=== PATIENT | female | born 1940 | race Caucasian/White ===

== ENCOUNTER 2018-05-06 06:26 | Day surgery (SDC) | payer MEDICARE, OTHER ==
[~2018-05-06 06:26] MED LIST: AMPICILLIN/SULB 3 GM/NS (PMX) 100 ML IVPB; DEXTROSE 5%-0.45% NACL 1,000 ML IV
[2018-05-06] MEDS ORDERED: BUPIVACAINE 0.25%/EPI (SDV) 30 ML INJ (06:46)
[2018-05-06] MEDS ORDERED: METOCLOPRAMIDE 10 MG INJ (07:00)
[2018-05-06] MEDS ORDERED: CEFAZOLIN 1 GM INJ (07:00)
[2018-05-06] MEDS ORDERED: DEXAMETHASONE 4 MG/ML 1 ML INJ (07:00)
[2018-05-06 07:25] LABS: INR 1.21; PROTIME 15.5 Sec (11.9-14.9); PT RATIO 1.2
[2018-05-06] MEDS ORDERED: MEPERIDINE 25 MG INJ IV (07:30)
[2018-05-06] MEDS ORDERED: DIPHENHYDRAMINE 50 MG INJ IV (07:30)
[2018-05-06] MEDS ORDERED: hydrALAzine 20 MG INJ IV (07:30)
[2018-05-06] MEDS ORDERED: FENTAnyl 50 MCG/ML VIAL IV ×2 (07:30)
[2018-05-06] MEDS ORDERED: LABETALOL HCL 20MG INJ IV (07:30)
[2018-05-06] MEDS ORDERED: ONDANSETRON 4 MG INJ IV ×2 (07:30→09:00)
[2018-05-06] MEDS ORDERED: HYDROmorphONE 1 MG/5 ML IV SYRINGE IV ×3 (07:30)
[2018-05-06] MEDS ORDERED: IPRATROPIUM (NEB) 0.5 MG/2.5 ML AMP HHN (07:30)
[2018-05-06] MEDS ORDERED: ETOMIDATE 20 MG INJ (07:53)
[2018-05-06] MEDS ORDERED: LIDOCAINE 2% (SDV) 5 ML INJ (07:53)
[2018-05-06] MEDS ORDERED: ONDANSETRON 4 MG INJ (07:53)
[2018-05-06] MEDS ORDERED: FENTAnyl 50 MCG/ML VIAL (07:53)
[2018-05-06] MEDS ORDERED: MIDAZOLAM 1 MG/ML 2 ML INJ (07:53)
[2018-05-06] MEDS ORDERED: HYDROmorphONE 2 MG/ML SYG (08:38)
[2018-05-06] MEDS ORDERED: IBUPROFEN 600 MG TAB PO (09:00)
[2018-05-06] MEDS ORDERED: HYDROCODONE/APAP (5/325) TAB PO ×2 (09:00)
[2018-05-06] MEDS: BUPIVACAINE 0.25% (MPF) 30 ML INJ (09:00)
== END 2018-05-06 13:20 | disposition home or self-care (01) ==
LOC: SDS 06:26
DX: K64.2 Third degree hemorrhoids (principal); I48.91 Unspecified atrial fibrillation; Z79.01 Long term (current) use of anticoagulants; Z95.0 Presence of cardiac pacemaker
CPT/HCPCS: 45330; 85610; 85730; 86850; 86900; 86901; 88304

== ENCOUNTER 2018-05-11 00:22 | Inpatient (IN) | payer MEDICARE, OTHER ==
[2018-05-11] MEDS: SOD CHLORIDE 0.9% 500 ML IV ×3 (00:52→21:54)
[2018-05-11] MEDS: ONDANSETRON 4 MG INJ IV ×2 (00:52→23:01)
[2018-05-11] MEDS: morphine 4 MG/ML VIAL IV (00:53)
[2018-05-11 01:26] LABS: ADD MAN DIFF? NO
[2018-05-11 01:28] LABS: BASOPHIL # 0.1 10^3/ul (0.0-0.1); BASOPHILS % 0.4 % (0.0-2.0); EOSINOPHILS # 0.4 10^3/ul (0.0-0.5); EOSINOPHILS % 2.8 % (0.0-7.0); HEMATOCRIT 35.4 % (37.0-47.0); HEMOGLOBIN 11.6 g/dl (12.0-16.0); LYMPHOCYTES # 1.7 10^3/ul (0.8-2.9); LYMPHOCYTES % 11.5 % (15.0-51.0); MEAN CORPUSCULAR HEMOGLOBIN 30.1 pg (29.0-33.0); MEAN CORPUSCULAR HGB CONC 32.8 g/dl (32.0-37.0); MEAN CORPUSCULAR VOLUME 91.9 fl (82.0-101.0); MEAN PLATELET VOLUME 11.7 fl (7.4-10.4); MONOCYTE # 1.2 10^3/ul (0.3-0.9); MONOCYTES % 8.4 % (0.0-11.0); NEUTROPHILS % 76.6 % (39.0-77.0); PLATELET COUNT 240 10^3/UL (140-415); RED BLOOD COUNT 3.85 10^6/ul (4.20-5.40); RED CELL DISTRIBUTION WIDTH 13.2 % (11.5-14.5)
[2018-05-11 01:28] LABS: WHITE BLOOD COUNT 14.4 10^3/ul (4.8-10.8)
[2018-05-11] MEDS: SOD CHLORIDE 0.9% 250 ML IV ×2 (01:34→06:12)
[2018-05-11] MEDS: LIDOCAINE 5% 35 GM OINT TOP (01:34)
[2018-05-11 01:45] LABS: ALANINE AMINOTRANSFERASE 26 IU/L (13-69); ALBUMIN 4.4 g/dl (3.3-4.9); ALBUMIN/GLOBULIN RATIO 1.15; ALKALINE PHOSPHATASE 152 IU/L (42-121); ANION GAP 19 (8-16); ASPARTATE AMINO TRANSFERASE 56 IU/L (15-46); BILIRUBIN,INDIRECT 1.9 mg/dl (0-1.1); BILIRUBIN,TOTAL 1.9 mg/dl (0.2-1.3); BLOOD UREA NITROGEN 19 mg/dl (7-20); CALCIUM 9.5 mg/dl (8.4-10.2); CARBON DIOXIDE 23 mmol/L (21-31); CHLORIDE 94 mmol/L (97-110); GLUCOSE 156 mg/dl (70-220); SODIUM 131 mmol/L (135-144); TOTAL PROTEIN 8.2 g/dl (6.1-8.1)
[2018-05-11 01:47] LABS: INR 2.22; PROTIME 25.2 Sec (11.9-14.9)
[2018-05-11 01:48] LABS: PARTIAL THROMBOPLASTIN TIME 37.8 Sec (25.0-35.0)
[2018-05-11] MEDS ORDERED: ONDANSETRON 4 MG INJ IV ×3 (02:00→08:00)
[2018-05-11] MEDS ORDERED: ACETAMINOPHEN 325 MG TAB PO (02:00)
[2018-05-11 02:14] LABS: IMMEDIATE SPIN CROSSMATCH 1
[2018-05-11 05:19] LABS: TROPONIN-I 0.014 ng/ml (0.000-0.120)
[2018-05-11 05:29] LABS: ADD MAN DIFF? NO
[2018-05-11 05:32] LABS: BASOPHILS % 0.4 % (0.0-2.0); EOSINOPHILS % 0.4 % (0.0-7.0); LYMPHOCYTES % 9.7 % (15.0-51.0); MEAN CORPUSCULAR HEMOGLOBIN 30.8 pg (29.0-33.0); MEAN CORPUSCULAR HGB CONC 33.3 g/dl (32.0-37.0); MEAN CORPUSCULAR VOLUME 92.5 fl (82.0-101.0); MEAN PLATELET VOLUME 10.4 fl (7.4-10.4); MONOCYTE # 0.5 10^3/ul (0.3-0.9); MONOCYTES % 4.8 % (0.0-11.0); NEUTROPHIL # 8.5 10^3/ul (1.6-7.5); NEUTROPHILS % 84.3 % (39.0-77.0); PLATELET COUNT 130 10^3/UL (140-415); RED BLOOD COUNT 2.92 10^6/ul (4.20-5.40); RED CELL DISTRIBUTION WIDTH 13.5 % (11.5-14.5)
[2018-05-11 05:32] LABS: WHITE BLOOD COUNT 10.1 10^3/ul (4.8-10.8)
[2018-05-11] MEDS ORDERED: NORepinephrine 8MG/250 ML (PMX 250 ML IV (07:00)
[2018-05-11] MEDS ORDERED: ALBUTEROL/IPRATROPIUM (NEB) 3 ML AMP HHN (07:00)
[2018-05-11] MEDS ORDERED: EPHEDrine SULFATE 50 MG/5 ML SYG (07:00)
[2018-05-11] MEDS ORDERED: NACL 0.9% 3 ML SYG IV (07:00)
[2018-05-11] MEDS: PHYTONADIONE 10 MG in DEXTROSE 5% 50 ML IVPB (07:30)
[2018-05-11] MEDS ORDERED: ETOMIDATE 20 MG INJ (07:31)
[2018-05-11] MEDS ORDERED: CEFAZOLIN 1 GM INJ (07:31)
[2018-05-11] MEDS ORDERED: FENTAnyl 50 MCG/ML VIAL (07:31)
[2018-05-11] MEDS ORDERED: ONDANSETRON 4 MG INJ (07:35)
[2018-05-11] MEDS ORDERED: METOCLOPRAMIDE 10 MG INJ (07:35)
[2018-05-11] MEDS ORDERED: PHENYLephrine (100 MCG/ML) 5ML SYG (07:37)
[2018-05-11] MEDS ORDERED: HYDROmorphONE 1 MG/5 ML IV SYRINGE IV ×2 (08:00)
[2018-05-11] MEDS ORDERED: EPHEDrine SULFATE 50 MG/5 ML SYG IV (08:00)
[2018-05-11 08:09] LABS: IMMEDIATE SPIN CROSSMATCH 1 6
[2018-05-11] MEDS: SOD CHLORIDE 0.9% 1,000 ML IV (08:30)
[2018-05-11] MEDS ORDERED: HYDROmorphONE 2 MG/ML SYG (08:46)
[2018-05-11] MEDS ORDERED: FAMOTIDINE 20 MG INJ IV (09:00)
[2018-05-11 09:06] LABS: ADD MAN DIFF? NO
[2018-05-11 09:08] LABS: BASOPHILS % 0.1 % (0.0-2.0); EOSINOPHILS % 0.1 % (0.0-7.0); HEMOGLOBIN 9.5 g/dl (12.0-16.0); LYMPHOCYTES # 0.9 10^3/ul (0.8-2.9); MEAN CORPUSCULAR HEMOGLOBIN 30.4 pg (29.0-33.0); MEAN CORPUSCULAR HGB CONC 32.8 g/dl (32.0-37.0); MEAN CORPUSCULAR VOLUME 92.9 fl (82.0-101.0); MEAN PLATELET VOLUME 9.9 fl (7.4-10.4); MONOCYTE # 0.5 10^3/ul (0.3-0.9); MONOCYTES % 5.7 % (0.0-11.0); NEUTROPHIL # 7.8 10^3/ul (1.6-7.5); NEUTROPHILS % 83.5 % (39.0-77.0); PLATELET COUNT 115 10^3/UL (140-415); RED BLOOD COUNT 3.12 10^6/ul (4.20-5.40); RED CELL DISTRIBUTION WIDTH 13.5 % (11.5-14.5)
[2018-05-11 09:08] LABS: WHITE BLOOD COUNT 9.3 10^3/ul (4.8-10.8)
[2018-05-11] MEDS ORDERED: DEXTROSE 50% 50 ML SYRINGE IV ×2 (09:30)
[2018-05-11] MEDS ORDERED: GLUCOSE GEL 15 GRAM TUBE PO ×2 (09:30)
[2018-05-11] MEDS ORDERED: GLUCOSE GEL 15 GRAM TUBE BUCCAL (09:30)
[2018-05-11] MEDS ORDERED: GLUCAGON 1 MG INJ IM (09:30)
[2018-05-11 09:36] LABS: PROTIME 19.4 Sec (11.9-14.9); PT RATIO 1.5
[2018-05-11 09:37] LABS: ANION GAP 14 (8-16); BLOOD UREA NITROGEN 18 mg/dl (7-20); CALCIUM 7.4 mg/dl (8.4-10.2); CARBON DIOXIDE 22 mmol/L (21-31); CHLORIDE 102 mmol/L (97-110); GLUCOSE 177 mg/dl (70-220); POTASSIUM 4.4 mmol/L (3.5-5.1); SODIUM 134 mmol/L (135-144)
[2018-05-11] MEDS: DEXTROSE 5%-0.45% NACL 1,000 ML IV ×3 (10:40→23:33)
[2018-05-11] MEDS: FAMOTIDINE 20 MG INJ IV ×2 (11:41→20:49)
[2018-05-11 12:40] LABS: MAGNESIUM 1.9 mg/dl (1.7-2.5)
[2018-05-11] MEDS: MAGNESIUM SULFATE 2 GM/50 ML 50 ML IVPB (13:12)
[2018-05-11] MEDS: INSULIN ASPART [NOVOLOG] 3 ML PEN SC ×3 (13:16→20:50)
[2018-05-11] MEDS ORDERED: INSULIN GLARGINE [LANTus] (100 UNITS/ML) SYG SC ×2 (20:00)
[2018-05-11] MEDS: INSULIN GLARGINE [LANTus] (100 UNITS/ML) SYG SC (20:48)
[2018-05-11] MEDS: DIPHENHYDRAMINE 50 MG INJ IV (20:49)
[2018-05-11] MEDS: morphine 2 MG INJ IV (23:02)
[2018-05-12] MEDS: ACCU-CHEK XX (02:00)
[2018-05-12 05:10] LABS: ADD MAN DIFF? NO
[2018-05-12 05:15] LABS: WHITE BLOOD COUNT 9.2 10^3/ul (4.8-10.8)
[2018-05-12 05:15] LABS: BASOPHILS % 0.3 % (0.0-2.0); EOSINOPHILS # 0.5 10^3/ul (0.0-0.5); EOSINOPHILS % 5.4 % (0.0-7.0); HEMATOCRIT 23.3 % (37.0-47.0); HEMOGLOBIN 7.8 g/dl (12.0-16.0); LYMPHOCYTES # 1.4 10^3/ul (0.8-2.9); LYMPHOCYTES % 14.8 % (15.0-51.0); MEAN CORPUSCULAR HEMOGLOBIN 30.8 pg (29.0-33.0); MEAN CORPUSCULAR HGB CONC 33.5 g/dl (32.0-37.0); MEAN CORPUSCULAR VOLUME 92.1 fl (82.0-101.0); MEAN PLATELET VOLUME 10.6 fl (7.4-10.4); MONOCYTE # 0.8 10^3/ul (0.3-0.9); MONOCYTES % 8.4 % (0.0-11.0); NEUTROPHIL # 6.5 10^3/ul (1.6-7.5); NEUTROPHILS % 70.4 % (39.0-77.0); PLATELET COUNT 114 10^3/UL (140-415); RED BLOOD COUNT 2.53 10^6/ul (4.20-5.40); RED CELL DISTRIBUTION WIDTH 14.4 % (11.5-14.5)
[2018-05-12 05:36] LABS: INR 1.11; IRON 60 ug/dl (35-150); PROTIME 14.5 Sec (11.9-14.9); PT RATIO 1.1
[2018-05-12 05:37] LABS: PARTIAL THROMBOPLASTIN TIME 29.7 Sec (25.0-35.0)
[2018-05-12 05:40] LABS: ALANINE AMINOTRANSFERASE 25 IU/L (13-69); ALBUMIN 2.4 g/dl (3.3-4.9); ALKALINE PHOSPHATASE 72 IU/L (42-121); ANION GAP 6 (8-16); ASPARTATE AMINO TRANSFERASE 25 IU/L (15-46); BLOOD UREA NITROGEN 13 mg/dl (7-20); CALCIUM 6.9 mg/dl (8.4-10.2); CARBON DIOXIDE 26 mmol/L (21-31); CHLORIDE 106 mmol/L (97-110); CREATININE 0.88 mg/dl (0.44-1.00); GLUCOSE 176 mg/dl (70-220); MAGNESIUM 2.7 mg/dl (1.7-2.5); POTASSIUM 4.1 mmol/L (3.5-5.1); SODIUM 134 mmol/L (135-144); TOTAL PROTEIN 4.8 g/dl (6.1-8.1)
[2018-05-12 05:46] LABS: % IRON SATURATION 21 % SAT (22-52); TOTAL IRON BINDING CAPACITY 291 ug/dl (241-421)
[2018-05-12 06:29] LABS: FERRITIN 60.7 ng/ml (11.1-264.0)
[2018-05-12] MEDS: FAMOTIDINE 20 MG INJ IV ×2 (07:48→21:22)
[2018-05-12] MEDS: INSULIN ASPART [NOVOLOG] 3 ML PEN SC ×4 (08:24→21:24)
[2018-05-12] MEDS: DEXTROSE 5%-0.45% NACL 1,000 ML IV ×3 (10:31→22:40)
[2018-05-12] MEDS: ONDANSETRON 4 MG INJ IV (11:44)
[2018-05-12] MEDS: morphine 2 MG INJ IV ×2 (11:46→22:43)
[2018-05-12] MEDS: INSULIN GLARGINE [LANTus] (100 UNITS/ML) SYG SC (20:48)
[2018-05-12] MEDS: METOPROLOL 25 MG TAB PO (21:22)
[2018-05-13] MEDS: ACCU-CHEK XX (02:02)
[2018-05-13 05:42] LABS: ADD MAN DIFF? NO
[2018-05-13 05:46] LABS: WHITE BLOOD COUNT 7.4 10^3/ul (4.8-10.8)
[2018-05-13 05:46] LABS: ABNORMAL IP MESSAGE 1; BASOPHILS % 0.3 % (0.0-2.0); EOSINOPHILS # 0.5 10^3/ul (0.0-0.5); HEMATOCRIT 26.2 % (37.0-47.0); HEMOGLOBIN 8.8 g/dl (12.0-16.0); LYMPHOCYTES # 0.9 10^3/ul (0.8-2.9); LYMPHOCYTES % 12.3 % (15.0-51.0); MEAN CORPUSCULAR HEMOGLOBIN 31.2 pg (29.0-33.0); MEAN CORPUSCULAR HGB CONC 33.6 g/dl (32.0-37.0); MEAN CORPUSCULAR VOLUME 92.9 fl (82.0-101.0); MEAN PLATELET VOLUME 10.4 fl (7.4-10.4); MONOCYTE # 0.7 10^3/ul (0.3-0.9); NEUTROPHIL # 5.2 10^3/ul (1.6-7.5); NEUTROPHILS % 69.7 % (39.0-77.0); PLATELET COUNT 95 10^3/UL (140-415); RED BLOOD COUNT 2.82 10^6/ul (4.20-5.40); RED CELL DISTRIBUTION WIDTH 14.1 % (11.5-14.5)
[2018-05-13 05:48] LABS: POSITIVE DIFF @See below
[2018-05-13 06:09] LABS: ANION GAP 5 (8-16); BLOOD UREA NITROGEN 6 mg/dl (7-20); CALCIUM 7.4 mg/dl (8.4-10.2); CARBON DIOXIDE 27 mmol/L (21-31); CHLORIDE 106 mmol/L (97-110); CREATININE 0.72 mg/dl (0.44-1.00); GLUCOSE 144 mg/dl (70-220); POTASSIUM 3.9 mmol/L (3.5-5.1); SODIUM 134 mmol/L (135-144)
[2018-05-13 06:10] LABS: INR 1.15; PROTIME 14.9 Sec (11.9-14.9); PT RATIO 1.2
[2018-05-13] MEDS: DILTIAZEM 25 MG INJ IV (06:13)
[2018-05-13] MEDS: INSULIN ASPART [NOVOLOG] 3 ML PEN SC ×4 (07:50→21:00)
[2018-05-13] MEDS: FAMOTIDINE 20 MG INJ IV ×2 (09:23→21:00)
[2018-05-13] MEDS: DEXTROSE 5%-0.45% NACL 1,000 ML IV (09:23)
[2018-05-13] MEDS: METOPROLOL 25 MG TAB PO ×2 (09:23→15:22)
[2018-05-13] MEDS: morphine 2 MG INJ IV (12:19)
[2018-05-13] MEDS: ONDANSETRON 4 MG INJ IV (12:19)
[2018-05-13] MEDS: METOPROLOL 5 MG INJ IV (15:22)
[2018-05-13] MEDS: DIGOXIN 500 MCG INJ IV (18:26)
[2018-05-13] MEDS: DIPHENHYDRAMINE 50 MG INJ IV (18:33)
[2018-05-13] MEDS: ACETAMINOPHEN 325 MG TAB PO (18:39)
[2018-05-13 18:57] LABS: TROPONIN-I 0.027 ng/ml (0.000-0.120)
[2018-05-13 19:17] LABS: THYROID STIMULATING HORMONE 0.501 MIU/L (0.465-4.680)
[2018-05-13] MEDS: DOCUSATE SODIUM 100 MG CAP PO (21:00)
[2018-05-13] MEDS: METOPROLOL 50 MG TAB PO (21:16)
[2018-05-13] MEDS: INSULIN GLARGINE [LANTus] (100 UNITS/ML) SYG SC (21:27)
[2018-05-14] MEDS: DIGOXIN 500 MCG INJ IV (00:16)
[2018-05-14 01:24] LABS: TROPONIN-I 0.035 ng/ml (0.000-0.120)
[2018-05-14] MEDS: ACCU-CHEK XX (02:00)
[2018-05-14] MEDS: DILTIAZEM 25 MG INJ IV (03:50)
[2018-05-14 06:24] LABS: TROPONIN-I 0.031 ng/ml (0.000-0.120)
[2018-05-14] MEDS: INSULIN ASPART [NOVOLOG] 3 ML PEN SC ×4 (07:36→21:00)
[2018-05-14] MEDS: FAMOTIDINE 20 MG INJ IV ×2 (09:15→21:30)
[2018-05-14] MEDS: DOCUSATE SODIUM 100 MG CAP PO ×3 (09:15→21:00)
[2018-05-14] MEDS: METOPROLOL 50 MG TAB PO ×2 (09:15→21:32)
[2018-05-14] MEDS: DIPHENHYDRAMINE 50 MG INJ IV ×2 (09:16→23:44)
[2018-05-14] MEDS: ACETAMINOPHEN 325 MG TAB PO (09:16)
[2018-05-14] MEDS: DILTIAZEM 60 MG TAB PO ×2 (12:05→21:31)
[2018-05-14] MEDS: INSULIN GLARGINE [LANTus] (100 UNITS/ML) SYG SC (21:54)
[2018-05-14] MEDS: ONDANSETRON 4 MG INJ IV (23:37)
[2018-05-15] MEDS: ACCU-CHEK XX (02:00)
[2018-05-15] MEDS: INSULIN ASPART [NOVOLOG] 3 ML PEN SC ×4 (08:00→21:00)
[2018-05-15] MEDS: DOCUSATE SODIUM 100 MG CAP PO ×3 (09:00→21:30)
[2018-05-15] MEDS: DILTIAZEM 60 MG TAB PO ×3 (09:04→21:39)
[2018-05-15] MEDS: METOPROLOL 50 MG TAB PO ×2 (09:05→21:39)
[2018-05-15] MEDS: FAMOTIDINE 20 MG INJ IV ×2 (09:05→21:00)
[2018-05-15] MEDS: ACETAMINOPHEN 325 MG TAB PO (13:35)
[2018-05-15] MEDS ORDERED: DIGOXIN 500 MCG INJ IV (14:30)
[2018-05-15] MEDS ORDERED: HYDROCODONE/APAP (5/325) TAB PO (16:30)
[2018-05-15] MEDS: DIGOXIN 0.25 MG TAB PO (18:41)
[2018-05-15] MEDS: INSULIN GLARGINE [LANTus] (100 UNITS/ML) SYG SC (22:06)
[2018-05-16] MEDS: ACETAMINOPHEN 325 MG TAB PO ×2 (00:29→17:38)
[2018-05-16] MEDS: INSULIN ASPART [NOVOLOG] 3 ML PEN SC ×4 (08:00→20:01)
[2018-05-16] MEDS: DOCUSATE SODIUM 100 MG CAP PO ×3 (08:22→20:01)
[2018-05-16] MEDS: FAMOTIDINE 20 MG INJ IV ×2 (08:22→20:00)
[2018-05-16] MEDS: DILTIAZEM 60 MG TAB PO ×3 (08:23→20:01)
[2018-05-16] MEDS: METOPROLOL 50 MG TAB PO ×2 (08:23→16:51)
[2018-05-16] MEDS: ENOXAPARIN 40 MG/0.4 ML SYG SC ×2 (08:32→20:06)
[2018-05-16] MEDS ORDERED: ENOXAPARIN 40 MG/0.4 ML SYG SC (09:00)
[2018-05-16] MEDS: DIGOXIN 0.25 MG TAB PO (12:29)
[2018-05-16] MEDS: FUROSEMIDE 40 MG INJ IV (12:30)
[2018-05-16] MEDS: WARFARIN 3 MG TAB PO (16:51)
[2018-05-16] MEDS: ONDANSETRON 4 MG INJ IV (17:44)
[2018-05-16] MEDS: INSULIN GLARGINE [LANTus] (100 UNITS/ML) SYG SC (20:06)
[2018-05-17] MEDS: METOPROLOL 50 MG TAB PO ×4 (01:09→21:33)
[2018-05-17] MEDS: DIPHENHYDRAMINE 50 MG INJ IV (03:50)
[2018-05-17] MEDS: ACETAMINOPHEN 325 MG TAB PO (03:50)
[2018-05-17 06:15] LABS: ADD MAN DIFF? NO
[2018-05-17 06:17] LABS: WHITE BLOOD COUNT 8.7 10^3/ul (4.8-10.8)
[2018-05-17 06:17] LABS: BASOPHILS % 0.2 % (0.0-2.0); EOSINOPHILS # 0.4 10^3/ul (0.0-0.5); EOSINOPHILS % 5.1 % (0.0-7.0); HEMATOCRIT 27.7 % (37.0-47.0); HEMOGLOBIN 9.2 g/dl (12.0-16.0); LYMPHOCYTES # 0.7 10^3/ul (0.8-2.9); LYMPHOCYTES % 8.2 % (15.0-51.0); MEAN CORPUSCULAR HEMOGLOBIN 31.4 pg (29.0-33.0); MEAN CORPUSCULAR HGB CONC 33.2 g/dl (32.0-37.0); MEAN CORPUSCULAR VOLUME 94.5 fl (82.0-101.0); MEAN PLATELET VOLUME 9.8 fl (7.4-10.4); MONOCYTE # 0.6 10^3/ul (0.3-0.9); MONOCYTES % 7.1 % (0.0-11.0); NEUTROPHIL # 6.8 10^3/ul (1.6-7.5); NEUTROPHILS % 78.4 % (39.0-77.0); PLATELET COUNT 187 10^3/UL (140-415); RED BLOOD COUNT 2.93 10^6/ul (4.20-5.40); RED CELL DISTRIBUTION WIDTH 15.3 % (11.5-14.5)
[2018-05-17 06:40] LABS: INR 1.15; PROTIME 14.9 Sec (11.9-14.9); PT RATIO 1.2
[2018-05-17 06:41] LABS: ALANINE AMINOTRANSFERASE 26 IU/L (13-69); ALBUMIN 2.9 g/dl (3.3-4.9); ALBUMIN/GLOBULIN RATIO 1.11; ALKALINE PHOSPHATASE 110 IU/L (42-121); ANION GAP 11 (8-16); ASPARTATE AMINO TRANSFERASE 26 IU/L (15-46); BLOOD UREA NITROGEN 11 mg/dl (7-20); CALCIUM 7.5 mg/dl (8.4-10.2); CARBON DIOXIDE 25 mmol/L (21-31); CHLORIDE 104 mmol/L (97-110); CREATININE 0.59 mg/dl (0.44-1.00); GLUCOSE 82 mg/dl (70-220); POTASSIUM 3.2 mmol/L (3.5-5.1); SODIUM 137 mmol/L (135-144); TOTAL PROTEIN 5.5 g/dl (6.1-8.1)
[2018-05-17] MEDS: INSULIN ASPART [NOVOLOG] 3 ML PEN SC ×4 (07:54→21:00)
[2018-05-17] MEDS: FAMOTIDINE 20 MG INJ IV (08:25)
[2018-05-17] MEDS: DILTIAZEM 60 MG TAB PO ×3 (08:26→21:34)
[2018-05-17] MEDS: POTASSIUM CHLORIDE (SR) 20 MEQ TAB PO (08:26)
[2018-05-17] MEDS: FUROSEMIDE 40 MG INJ IV (08:27)
[2018-05-17] MEDS: DOCUSATE SODIUM 100 MG CAP PO ×4 (08:27→21:34)
[2018-05-17] MEDS: ENOXAPARIN 40 MG/0.4 ML SYG SC ×2 (08:47→21:39)
[2018-05-17] MEDS: DIGOXIN 500 MCG INJ IV (12:08)
[2018-05-17] MEDS ORDERED: DIGOXIN 0.25 MG TAB PO (13:00)
[2018-05-17] MEDS: WARFARIN 3 MG TAB PO (17:28)
[2018-05-17] MEDS: INSULIN GLARGINE [LANTus] (100 UNITS/ML) SYG SC (21:39)
[2018-05-18] MEDS: METOPROLOL 50 MG TAB PO ×2 (05:33→14:21)
[2018-05-18] MEDS: INSULIN ASPART [NOVOLOG] 3 ML PEN SC ×2 (08:00→12:00)
[2018-05-18] MEDS: DILTIAZEM 60 MG TAB PO ×2 (08:27→12:32)
[2018-05-18] MEDS: FUROSEMIDE 40 MG TAB PO (08:27)
[2018-05-18] MEDS: ENOXAPARIN 40 MG/0.4 ML SYG SC (08:29)
[2018-05-18] MEDS: DOCUSATE SODIUM 100 MG CAP PO ×2 (08:30→12:32)
[2018-05-18] MEDS: DIGOXIN 0.125 MG TAB PO (12:32)
[2018-05-18] MEDS: POTASSIUM CHLORIDE 100 ML IVPB (14:46)
== END 2018-05-18 14:35 | disposition home or self-care (01) | DRG 981 ==
LOC: E/R 00:22 → ICU 05-12 20:02 → 6WM 05-12 21:37
PROC: 0W3P7ZZ Control Bleeding in Gastrointestinal Tract, Via Natural or Artificial Opening (ICD-10-PCS; principal; 2018-05-11 07:16)
PROC: 30233K1 Transfusion of Nonautologous Frozen Plasma into Peripheral Vein, Percutaneous Approach (ICD-10-PCS; 2018-05-11 07:31)
PROC: 30233N1 Transfusion of Nonautologous Red Blood Cells into Peripheral Vein, Percutaneous Approach (ICD-10-PCS; 2018-05-11 07:31)
DX: D68.32 Hemorrhagic disorder due to extrinsic circulating anticoagulants (principal); R57.1 Hypovolemic shock; D62 Acute posthemorrhagic anemia; K62.5 Hemorrhage of anus and rectum; N17.9 Acute kidney failure, unspecified; E87.1 Hypo-osmolality and hyponatremia; K91.840 Postprocedural hemorrhage of a digestive system organ or structure following a digestive system procedure; E87.0 Hyperosmolality and hypernatremia; I48.91 Unspecified atrial fibrillation; Z95.0 Presence of cardiac pacemaker; Z79.02 Long term (current) use of antithrombotics/antiplatelets; Z95.2 Presence of prosthetic heart valve; I12.9 Hypertensive chronic kidney disease with stage 1 through stage 4 chronic kidney disease, or unspecified chronic kidney disease; N18.9 Chronic kidney disease, unspecified; E11.9 Type 2 diabetes mellitus without complications; T45.515A Adverse effect of anticoagulants, initial encounter
CPT/HCPCS: 36415; 36430; 71045; 80048; 80053; 82728; 82962; 83036; 83540; 83735; 84443; 84484; 85025; 85610; 85730; 86644; 86850; 86900; 86901; 86920; 87081; 93005; 93306; 96374; 96375; 97110; 97116; 97161; 97530; 99291-25

== ENCOUNTER 2018-05-23 21:21 | Inpatient (IN) | payer MEDICARE, OTHER ==
[2018-05-23 23:22] LABS: ADD MAN DIFF? NO
[2018-05-23 23:27] LABS: WHITE BLOOD COUNT 7.8 10^3/ul (4.8-10.8)
[2018-05-23 23:27] LABS: BASOPHILS % 0.5 % (0.0-2.0); EOSINOPHILS # 0.1 10^3/ul (0.0-0.5); EOSINOPHILS % 0.6 % (0.0-7.0); HEMATOCRIT 27.1 % (37.0-47.0); HEMOGLOBIN 8.8 g/dl (12.0-16.0); LYMPHOCYTES # 1.1 10^3/ul (0.8-2.9); LYMPHOCYTES % 14.5 % (15.0-51.0); MEAN CORPUSCULAR HEMOGLOBIN 31.1 pg (29.0-33.0); MEAN CORPUSCULAR HGB CONC 32.5 g/dl (32.0-37.0); MEAN CORPUSCULAR VOLUME 95.8 fl (82.0-101.0); MEAN PLATELET VOLUME 10.7 fl (7.4-10.4); MONOCYTES % 12.2 % (0.0-11.0); NEUTROPHIL # 5.5 10^3/ul (1.6-7.5); NEUTROPHILS % 71.4 % (39.0-77.0); PLATELET COUNT 245 10^3/UL (140-415); RED BLOOD COUNT 2.83 10^6/ul (4.20-5.40)
[2018-05-23 23:31] LABS: PT RATIO 3.5
[2018-05-23 23:32] LABS: PARTIAL THROMBOPLASTIN TIME 43.8 Sec (23.0-35.0)
[2018-05-23 23:38] LABS: ALANINE AMINOTRANSFERASE 29 IU/L (13-69); ALBUMIN 3.3 g/dl (3.3-4.9); ALBUMIN/GLOBULIN RATIO 0.97; ALKALINE PHOSPHATASE 141 IU/L (42-121); ANION GAP 14 (8-16); ASPARTATE AMINO TRANSFERASE 86 IU/L (15-46); BLOOD UREA NITROGEN 16 mg/dl (7-20); CARBON DIOXIDE 25 mmol/L (21-31); CHLORIDE 98 mmol/L (97-110); CREATININE 1.01 mg/dl (0.44-1.00); GLUCOSE 119 mg/dl (70-220); LIPASE 1493 U/L (23-300); POTASSIUM 4.1 mmol/L (3.5-5.1); SODIUM 133 mmol/L (135-144); TOTAL PROTEIN 6.7 g/dl (6.1-8.1)
[2018-05-23 23:41] LABS: PROTIME 44.3 Sec (11.9-14.9)
[2018-05-23 23:55] LABS: URINE BLOOD (Dip) POC 3+ (NEGATIVE); URINE GLUCOSE (Dip) POC Negative (NEGATIVE); URINE KETONES (Dip) POC 1+ (NEGATIVE); URINE LEUKOCYTE EST (Dip) POC 3+ (NEGATIVE); URINE NITRITE (Dip) POC Negative (NEGATIVE); URINE TOTAL PROTEIN POC 3+ (NEGATIVE)
[2018-05-23 23:55] LABS: URINE PH (Dip) POC 8.5 (5.0-8.5)
[2018-05-24] MEDS: SOD CHLORIDE 0.9% 500 ML IV ×2 (00:01→02:20)
[2018-05-24] MEDS: PIPER-TAZO 3.375 GM IV (PMX) 100 ML IVPB (00:18)
[2018-05-24] MEDS: morphine 2 MG INJ IV ×2 (00:40→08:21)
[2018-05-24] MEDS: ONDANSETRON 4 MG INJ IV ×2 (00:40→08:21)
[2018-05-24] MEDS: DEXTROSE 5%-0.45% NACL 1,000 ML IV (03:56)
[2018-05-24] MEDS ORDERED: GLUCOSE GEL 15 GRAM TUBE PO ×2 (04:30)
[2018-05-24] MEDS ORDERED: GLUCOSE GEL 15 GRAM TUBE BUCCAL (04:30)
[2018-05-24] MEDS ORDERED: GLUCAGON 1 MG INJ IM (04:30)
[2018-05-24] MEDS ORDERED: DEXTROSE 50% 50 ML SYRINGE IV ×2 (04:30)
[2018-05-24] MEDS: INSULIN ASPART [NOVOLOG] 3 ML PEN SC ×5 (05:00→20:49)
[2018-05-24] MEDS ORDERED: INSULIN ASPART [NOVOLOG] 3 ML PEN SC ×2 (05:00→07:55)
[2018-05-24] MEDS: ACCU-CHEK XX ×5 (05:39→20:49)
[2018-05-24 07:02] LABS: ADD MAN DIFF? NO
[2018-05-24 07:16] LABS: BASOPHILS % 0.4 % (0.0-2.0); EOSINOPHILS # 0.1 10^3/ul (0.0-0.5); EOSINOPHILS % 0.6 % (0.0-7.0); HEMATOCRIT 25.4 % (37.0-47.0); HEMOGLOBIN 8.1 g/dl (12.0-16.0); LYMPHOCYTES # 1.3 10^3/ul (0.8-2.9); LYMPHOCYTES % 15.1 % (15.0-51.0); MEAN CORPUSCULAR HEMOGLOBIN 31.4 pg (29.0-33.0); MEAN CORPUSCULAR HGB CONC 31.9 g/dl (32.0-37.0); MEAN CORPUSCULAR VOLUME 98.4 fl (82.0-101.0); MEAN PLATELET VOLUME 10.2 fl (7.4-10.4); MONOCYTE # 0.9 10^3/ul (0.3-0.9); MONOCYTES % 10.8 % (0.0-11.0); NEUTROPHIL # 6.1 10^3/ul (1.6-7.5); NEUTROPHILS % 71.9 % (39.0-77.0); NUCLEATED RED BLOOD CELLS% 0.2 /100WBC (0.0-0.0); PLATELET COUNT 222 10^3/UL (140-415); RED BLOOD COUNT 2.58 10^6/ul (4.20-5.40); RED CELL DISTRIBUTION WIDTH 16.3 % (11.5-14.5)
[2018-05-24 07:16] LABS: WHITE BLOOD COUNT 8.4 10^3/ul (4.8-10.8)
[2018-05-24 07:56] LABS: ALANINE AMINOTRANSFERASE 26 IU/L (13-69); ALBUMIN 3.1 g/dl (3.3-4.9); ALBUMIN/GLOBULIN RATIO 1.06; ALKALINE PHOSPHATASE 115 IU/L (42-121); ANION GAP 8 (8-16); ASPARTATE AMINO TRANSFERASE 80 IU/L (15-46); BILIRUBIN,INDIRECT 2.6 mg/dl (0-1.1); BILIRUBIN,TOTAL 3.5 mg/dl (0.2-1.3); BLOOD UREA NITROGEN 15 mg/dl (7-20); CALCIUM 7.8 mg/dl (8.4-10.2); CARBON DIOXIDE 28 mmol/L (21-31); CHLORIDE 105 mmol/L (97-110); CREATININE 0.99 mg/dl (0.44-1.00); GLUCOSE 125 mg/dl (70-220); POTASSIUM 4.2 mmol/L (3.5-5.1); SODIUM 137 mmol/L (135-144)
[2018-05-24 08:29] LABS: CHOLESTEROL 84 mg/dl (100-200)
[2018-05-24 08:29] LABS: CHOL/HDL RATIO 2.3 RATIO; HDL CHOLESTEROL 36 mg/dl (33-92); LDL CHOLESTEROL,CALCULATED 32 mg/dl; TRIGLYCERIDES 80 mg/dl (0-149)
[2018-05-24] MEDS ORDERED: DILTIAZEM 25 MG INJ IV (15:00)
[2018-05-24] MEDS: METOPROLOL 5 MG INJ IV ×2 (15:53→17:47)
[2018-05-24] MEDS: SOD CHLORIDE 0.9% 1,000 ML IV ×2 (15:53→20:49)
[2018-05-24] MEDS: LEVOFLOXACIN 250MG/D5W (PMX) 50 ML IVPB (15:53)
[2018-05-24] MEDS: MAGNESIUM HYDROXIDE 30ML CUP PO (15:53)
[2018-05-24] MEDS: DOCUSATE SODIUM 100 MG CAP PO ×2 (15:53→20:48)
[2018-05-24] MEDS: LEVOFLOXACIN 500MG/D5W (PMX) 100 ML IVPB (15:58)
[2018-05-24 19:07] LABS: ADD UMIC YES; UR ASCORBIC ACID NEGATIVE (NEGATIVE); UR BILIRUBIN (Dip) NEGATIVE (NEGATIVE); UR BLOOD (Dip) 3+ mg/dL (NEGATIVE); UR CLARITY SLIGHTLY CLOUDY (CLEAR); UR COLOR AMBER (YELLOW); UR GLUCOSE (Dip) NEGATIVE (NEGATIVE); UR KETONES (Dip) NEGATIVE (NEGATIVE); UR LEUKOCYTE ESTERASE (Dip) 3+ Leu/ul (NEGATIVE); UR NITRITE (Dip) NEGATIVE (NEGATIVE); UR RBC 8 /HPF (0-5); UR SPECIFIC GRAVITY (Dip) 1.015 (1.003-1.030); UR SQUAMOUS EPITHELIAL CELL FEW /HPF (FEW); UR TOTAL PROTEIN (Dip) 1+ mg/dl (NEGATIVE); UR UROBILINOGEN (Dip) 2+ mg/dL (NEGATIVE); UR WBC 99 /HPF (0-5)
[2018-05-24] MEDS: HARD FAT/PHENYLEPHRINE SUPP PR ×2 (20:48→20:59)
[2018-05-25] MEDS: METOPROLOL 5 MG INJ IV ×2 (00:08→05:08)
[2018-05-25] MEDS: morphine 2 MG INJ IV ×2 (00:18→18:32)
[2018-05-25] MEDS: ONDANSETRON 4 MG INJ IV ×2 (00:21→13:33)
[2018-05-25] MEDS: INSULIN ASPART [NOVOLOG] 3 ML PEN SC ×6 (01:00→20:52)
[2018-05-25] MEDS: ACCU-CHEK XX ×6 (01:00→21:00)
[2018-05-25] MEDS ORDERED: ACCU-CHEK XX (02:00)
[2018-05-25] MEDS: SOD CHLORIDE 0.9% 1,000 ML IV ×2 (03:30→07:00)
[2018-05-25] MEDS: HARD FAT/PHENYLEPHRINE SUPP PR ×2 (08:08→20:56)
[2018-05-25] MEDS: DOCUSATE SODIUM 100 MG CAP PO ×3 (08:08→20:56)
[2018-05-25 08:12] LABS: ADD MAN DIFF? NO
[2018-05-25 08:26] LABS: WHITE BLOOD COUNT 5.4 10^3/ul (4.8-10.8)
[2018-05-25 08:26] LABS: BASOPHILS % 0.7 % (0.0-2.0); EOSINOPHILS # 0.2 10^3/ul (0.0-0.5); EOSINOPHILS % 3.3 % (0.0-7.0); HEMOGLOBIN 7.7 g/dl (12.0-16.0); LYMPHOCYTES # 1.3 10^3/ul (0.8-2.9); LYMPHOCYTES % 23.8 % (15.0-51.0); MEAN CORPUSCULAR HGB CONC 30.8 g/dl (32.0-37.0); MEAN CORPUSCULAR VOLUME 100.8 fl (82.0-101.0); MEAN PLATELET VOLUME 9.7 fl (7.4-10.4); MONOCYTE # 0.6 10^3/ul (0.3-0.9); MONOCYTES % 10.1 % (0.0-11.0); NEUTROPHIL # 3.3 10^3/ul (1.6-7.5); PLATELET COUNT 193 10^3/UL (140-415); RED BLOOD COUNT 2.48 10^6/ul (4.20-5.40); RED CELL DISTRIBUTION WIDTH 17.2 % (11.5-14.5)
[2018-05-25 08:32] LABS: ALANINE AMINOTRANSFERASE 39 IU/L (13-69); ALBUMIN 2.6 g/dl (3.3-4.9); ALBUMIN/GLOBULIN RATIO 0.86; ALKALINE PHOSPHATASE 116 IU/L (42-121); ANION GAP 9 (8-16); ASPARTATE AMINO TRANSFERASE 56 IU/L (15-46); BILIRUBIN,INDIRECT 0.6 mg/dl (0-1.1); BILIRUBIN,TOTAL 0.6 mg/dl (0.2-1.3); BLOOD UREA NITROGEN 12 mg/dl (7-20); CALCIUM 7.6 mg/dl (8.4-10.2); CARBON DIOXIDE 27 mmol/L (21-31); CHLORIDE 107 mmol/L (97-110); CREATININE 0.82 mg/dl (0.44-1.00); GLUCOSE 92 mg/dl (70-220); POTASSIUM 4.4 mmol/L (3.5-5.1); SODIUM 139 mmol/L (135-144); TOTAL PROTEIN 5.6 g/dl (6.1-8.1)
[2018-05-25 08:40] LABS: INR 4.69; PROTIME 45.8 Sec (11.9-14.9); PT RATIO 3.6
[2018-05-25 09:52] LABS: MAGNESIUM 2.4 mg/dl (1.7-2.5)
[2018-05-25] MEDS: DILTIAZEM (CD) 120 MG CAP PO (12:15)
[2018-05-25] MEDS: ATENOLOL 100 MG TAB PO (13:25)
[2018-05-25] MEDS: DEXTROSE 5%-0.45% NACL 1,000 ML IV (14:26)
[2018-05-25] MEDS ORDERED: ATORVASTATIN 40 MG TAB PO (21:00)
[2018-05-26] MEDS: INSULIN ASPART [NOVOLOG] 3 ML PEN SC ×6 (01:00→20:09)
[2018-05-26] MEDS: ACCU-CHEK XX ×6 (01:00→20:10)
[2018-05-26] MEDS: DEXTROSE 5%-0.45% NACL 1,000 ML IV ×2 (02:46→19:44)
[2018-05-26] MEDS: morphine 2 MG INJ IV ×2 (05:34→19:42)
[2018-05-26] MEDS: ONDANSETRON 4 MG INJ IV ×2 (05:34→19:41)
[2018-05-26 06:54] LABS: ADD MAN DIFF? NO
[2018-05-26 06:57] LABS: WHITE BLOOD COUNT 5.7 10^3/ul (4.8-10.8)
[2018-05-26 06:57] LABS: BASOPHILS % 0.7 % (0.0-2.0); EOSINOPHILS # 0.4 10^3/ul (0.0-0.5); EOSINOPHILS % 6.4 % (0.0-7.0); HEMOGLOBIN 7.6 g/dl (12.0-16.0); LYMPHOCYTES # 1.1 10^3/ul (0.8-2.9); LYMPHOCYTES % 18.3 % (15.0-51.0); MEAN CORPUSCULAR HEMOGLOBIN 30.9 pg (29.0-33.0); MEAN CORPUSCULAR HGB CONC 30.4 g/dl (32.0-37.0); MEAN CORPUSCULAR VOLUME 101.6 fl (82.0-101.0); MEAN PLATELET VOLUME 9.9 fl (7.4-10.4); MONOCYTE # 0.5 10^3/ul (0.3-0.9); MONOCYTES % 8.2 % (0.0-11.0); NEUTROPHIL # 3.8 10^3/ul (1.6-7.5); NEUTROPHILS % 65.7 % (39.0-77.0); PLATELET COUNT 200 10^3/UL (140-415); RED BLOOD COUNT 2.46 10^6/ul (4.20-5.40); RED CELL DISTRIBUTION WIDTH 17.3 % (11.5-14.5)
[2018-05-26 07:19] LABS: INR 3.97; PROTIME 40.1 Sec (11.9-14.9); PT RATIO 3.1
[2018-05-26 07:19] LABS: LIPASE 216 U/L (23-300)
[2018-05-26 07:28] LABS: ANION GAP 9 (8-16); BLOOD UREA NITROGEN 8 mg/dl (7-20); CALCIUM 7.4 mg/dl (8.4-10.2); CARBON DIOXIDE 26 mmol/L (21-31); CHLORIDE 105 mmol/L (97-110); CREATININE 0.76 mg/dl (0.44-1.00); GLUCOSE 142 mg/dl (70-220); MAGNESIUM 2.7 mg/dl (1.7-2.5); PHOSPHORUS 1.5 mg/dl (2.5-4.9); POTASSIUM 3.8 mmol/L (3.5-5.1); SODIUM 136 mmol/L (135-144)
[2018-05-26] MEDS: DOCUSATE SODIUM 100 MG CAP PO ×3 (07:47→20:10)
[2018-05-26] MEDS: HARD FAT/PHENYLEPHRINE SUPP PR ×2 (07:47→20:09)
[2018-05-26] MEDS: ATENOLOL 100 MG TAB PO ×2 (07:48→13:04)
[2018-05-26] MEDS: DILTIAZEM (CD) 120 MG CAP PO ×2 (07:48→13:04)
[2018-05-26] MEDS: SPIRONOLACTONE 50 MG TAB PO (08:01)
[2018-05-26] MEDS: FUROSEMIDE 20 MG TAB PO (08:02)
[2018-05-26] MEDS: SODIUM PHOSPHATE 15 MMOL in SOD CHLORIDE 0.9% 250 ML IVPB (13:03)
[2018-05-26] MEDS: SUCRALFATE (100 MG/ML) 10ML CUP PO ×3 (13:14→20:10)
[2018-05-26] MEDS: LEVOFLOXACIN 250MG/D5W (PMX) 50 ML IVPB ×2 (15:11→17:02)
[2018-05-26] MEDS ORDERED: LACTULOSE 30ML CUP PO (16:00)
[2018-05-27] MEDS: ACCU-CHEK XX (01:17)
[2018-05-27] MEDS: ONDANSETRON 4 MG INJ IV ×2 (01:33→15:52)
[2018-05-27] MEDS: morphine 2 MG INJ IV ×2 (02:01→15:49)
[2018-05-27] MEDS: DEXTROSE 5%-0.45% NACL 1,000 ML IV ×2 (03:30→16:00)
[2018-05-27] MEDS: PANTOPRAZOLE 40 MG INJ IV (05:24)
[2018-05-27 06:35] LABS: ADD MAN DIFF? NO
[2018-05-27 06:38] LABS: WHITE BLOOD COUNT 5.7 10^3/ul (4.8-10.8)
[2018-05-27 06:38] LABS: BASOPHILS % 0.3 % (0.0-2.0); EOSINOPHILS # 0.3 10^3/ul (0.0-0.5); EOSINOPHILS % 4.5 % (0.0-7.0); HEMOGLOBIN 7.7 g/dl (12.0-16.0); LYMPHOCYTES # 0.9 10^3/ul (0.8-2.9); LYMPHOCYTES % 16.4 % (15.0-51.0); MEAN CORPUSCULAR HEMOGLOBIN 31.2 pg (29.0-33.0); MEAN CORPUSCULAR HGB CONC 30.8 g/dl (32.0-37.0); MEAN CORPUSCULAR VOLUME 101.2 fl (82.0-101.0); MEAN PLATELET VOLUME 9.8 fl (7.4-10.4); MONOCYTE # 0.5 10^3/ul (0.3-0.9); MONOCYTES % 8.4 % (0.0-11.0); NEUTROPHILS % 69.9 % (39.0-77.0); PLATELET COUNT 206 10^3/UL (140-415); RED BLOOD COUNT 2.47 10^6/ul (4.20-5.40); RED CELL DISTRIBUTION WIDTH 17.6 % (11.5-14.5)
[2018-05-27 07:00] LABS: INR 4.85; PT RATIO 3.7
[2018-05-27 07:04] LABS: ANION GAP 9 (8-16); BLOOD UREA NITROGEN 4 mg/dl (7-20); CALCIUM 7.4 mg/dl (8.4-10.2); CARBON DIOXIDE 27 mmol/L (21-31); CHLORIDE 105 mmol/L (97-110); CREATININE 0.76 mg/dl (0.44-1.00); GLUCOSE 144 mg/dl (70-220); MAGNESIUM 2.5 mg/dl (1.7-2.5); PHOSPHORUS 1.8 mg/dl (2.5-4.9); POTASSIUM 3.6 mmol/L (3.5-5.1); SODIUM 137 mmol/L (135-144)
[2018-05-27] MEDS: INSULIN ASPART [NOVOLOG] 3 ML PEN SC ×4 (07:45→20:55)
[2018-05-27] MEDS: SUCRALFATE (100 MG/ML) 10ML CUP PO ×4 (08:15→21:09)
[2018-05-27] MEDS: SPIRONOLACTONE 50 MG TAB PO (08:16)
[2018-05-27] MEDS: DILTIAZEM (CD) 120 MG CAP PO (08:16)
[2018-05-27] MEDS: DOCUSATE SODIUM 100 MG CAP PO ×3 (08:17→21:09)
[2018-05-27] MEDS: ATENOLOL 100 MG TAB PO (08:17)
[2018-05-27] MEDS: HARD FAT/PHENYLEPHRINE SUPP PR ×2 (08:17→20:55)
[2018-05-27] MEDS: FUROSEMIDE 20 MG TAB PO (08:17)
[2018-05-27] MEDS: MINERAL OIL 30ML CUP PO (15:44)
[2018-05-27] MEDS: LEVOFLOXACIN 250MG/D5W (PMX) 50 ML IVPB (15:45)
[2018-05-27] MEDS: BARIUM SULF 2% 450 ML BTL (BERRY SMOOTHIE) PO (16:11)
[2018-05-27] MEDS: IOHEXOL 300MG/ML 150 ML BTL (18:31)
[2018-05-27] MEDS: SOD CHLORIDE 0.9% 100 ML (18:31)
[2018-05-28] MEDS: KETOROLAC 30 MG INJ IV ×2 (01:58→22:20)
[2018-05-28] MEDS: ACCU-CHEK XX (02:00)
[2018-05-28] MEDS: DEXTROSE 5%-0.45% NACL 1,000 ML IV ×3 (02:45→16:25)
[2018-05-28] MEDS: PANTOPRAZOLE 40 MG INJ IV (05:53)
[2018-05-28 06:08] LABS: ADD MAN DIFF? NO
[2018-05-28 06:13] LABS: BASOPHILS % 0.8 % (0.0-2.0); EOSINOPHILS # 0.3 10^3/ul (0.0-0.5); EOSINOPHILS % 5.5 % (0.0-7.0); HEMATOCRIT 24.4 % (37.0-47.0); HEMOGLOBIN 7.7 g/dl (12.0-16.0); LYMPHOCYTES # 0.9 10^3/ul (0.8-2.9); LYMPHOCYTES % 16.9 % (15.0-51.0); MEAN CORPUSCULAR HEMOGLOBIN 31.8 pg (29.0-33.0); MEAN CORPUSCULAR HGB CONC 31.6 g/dl (32.0-37.0); MEAN CORPUSCULAR VOLUME 100.8 fl (82.0-101.0); MEAN PLATELET VOLUME 9.4 fl (7.4-10.4); MONOCYTE # 0.6 10^3/ul (0.3-0.9); MONOCYTES % 11.2 % (0.0-11.0); NEUTROPHIL # 3.4 10^3/ul (1.6-7.5); PLATELET COUNT 204 10^3/UL (140-415); RED BLOOD COUNT 2.42 10^6/ul (4.20-5.40)
[2018-05-28 06:13] LABS: WHITE BLOOD COUNT 5.3 10^3/ul (4.8-10.8)
[2018-05-28 06:31] LABS: INR 4.67; PROTIME 45.6 Sec (11.9-14.9); PT RATIO 3.6
[2018-05-28 06:47] LABS: LIPASE 70 U/L (23-300)
[2018-05-28 06:52] LABS: ALANINE AMINOTRANSFERASE 30 IU/L (13-69); ALBUMIN 2.5 g/dl (3.3-4.9); ALBUMIN/GLOBULIN RATIO 0.86; ALKALINE PHOSPHATASE 123 IU/L (42-121); ANION GAP 9 (8-16); ASPARTATE AMINO TRANSFERASE 31 IU/L (15-46); BILIRUBIN,INDIRECT 0.5 mg/dl (0-1.1); BILIRUBIN,TOTAL 0.5 mg/dl (0.2-1.3); BLOOD UREA NITROGEN 2 mg/dl (7-20); CALCIUM 7.4 mg/dl (8.4-10.2); CARBON DIOXIDE 28 mmol/L (21-31); CHLORIDE 105 mmol/L (97-110); CREATININE 0.83 mg/dl (0.44-1.00); GLUCOSE 109 mg/dl (70-220); POTASSIUM 3.4 mmol/L (3.5-5.1); SODIUM 139 mmol/L (135-144); TOTAL PROTEIN 5.4 g/dl (6.1-8.1)
[2018-05-28] MEDS: INSULIN ASPART [NOVOLOG] 3 ML PEN SC ×4 (07:37→20:36)
[2018-05-28] MEDS: SUCRALFATE (100 MG/ML) 10ML CUP PO ×4 (08:58→20:32)
[2018-05-28] MEDS: DOCUSATE SODIUM 100 MG CAP PO ×3 (08:59→20:33)
[2018-05-28] MEDS: ATENOLOL 100 MG TAB PO (08:59)
[2018-05-28] MEDS: DILTIAZEM (CD) 120 MG CAP PO (09:00)
[2018-05-28] MEDS: SPIRONOLACTONE 50 MG TAB PO (09:00)
[2018-05-28] MEDS: HARD FAT/PHENYLEPHRINE SUPP PR ×2 (09:00→20:32)
[2018-05-28] MEDS: FUROSEMIDE 20 MG TAB PO (09:00)
[2018-05-28 14:23] LABS: HEMOGLOBIN A1C 5.3 % (0-5.9)
[2018-05-28] MEDS ORDERED: morphine LIQ (10 MG/5 ML) CUP PO (17:00)
[2018-05-28] MEDS: PANTOPRAZOLE (EC) 40 MG TAB PO (18:28)
[2018-05-28] MEDS: POLYETHYLENE GLYCOL 17 GM PACKET PO (20:38)
[2018-05-28] MEDS: ONDANSETRON 4 MG INJ IV (22:20)
[2018-05-28] MEDS ORDERED: AL HYDROX/MG HYDROX/SIMETH 30 ML CUP PO (23:00)
[2018-05-29] MEDS: ACCU-CHEK XX (01:28)
[2018-05-29] MEDS: PANTOPRAZOLE (EC) 40 MG TAB PO ×2 (06:08→17:38)
[2018-05-29] MEDS: KETOROLAC 30 MG INJ IV ×2 (06:12→21:12)
[2018-05-29 06:16] LABS: ADD MAN DIFF? NO
[2018-05-29 06:33] LABS: WHITE BLOOD COUNT 6.1 10^3/ul (4.8-10.8)
[2018-05-29 06:33] LABS: BASOPHILS % 0.7 % (0.0-2.0); EOSINOPHILS # 0.3 10^3/ul (0.0-0.5); EOSINOPHILS % 4.9 % (0.0-7.0); HEMATOCRIT 25.7 % (37.0-47.0); HEMOGLOBIN 8.1 g/dl (12.0-16.0); LYMPHOCYTES # 0.9 10^3/ul (0.8-2.9); MEAN CORPUSCULAR HEMOGLOBIN 31.6 pg (29.0-33.0); MEAN CORPUSCULAR HGB CONC 31.5 g/dl (32.0-37.0); MEAN CORPUSCULAR VOLUME 100.4 fl (82.0-101.0); MEAN PLATELET VOLUME 9.8 fl (7.4-10.4); MONOCYTE # 0.5 10^3/ul (0.3-0.9); MONOCYTES % 8.9 % (0.0-11.0); NEUTROPHIL # 4.3 10^3/ul (1.6-7.5); PLATELET COUNT 233 10^3/UL (140-415); RED BLOOD COUNT 2.56 10^6/ul (4.20-5.40); RED CELL DISTRIBUTION WIDTH 18.1 % (11.5-14.5)
[2018-05-29 06:48] LABS: INR 3.69; PROTIME 37.8 Sec (11.9-14.9)
[2018-05-29 06:59] LABS: ALANINE AMINOTRANSFERASE 36 IU/L (13-69); ALBUMIN 2.6 g/dl (3.3-4.9); ALBUMIN/GLOBULIN RATIO 0.86; ALKALINE PHOSPHATASE 133 IU/L (42-121); ANION GAP 7 (8-16); ASPARTATE AMINO TRANSFERASE 30 IU/L (15-46); BILIRUBIN,INDIRECT 0.8 mg/dl (0-1.1); BILIRUBIN,TOTAL 0.8 mg/dl (0.2-1.3); BLOOD UREA NITROGEN 4 mg/dl (7-20); CALCIUM 7.7 mg/dl (8.4-10.2); CARBON DIOXIDE 28 mmol/L (21-31); CHLORIDE 107 mmol/L (97-110); CREATININE 0.94 mg/dl (0.44-1.00); GLUCOSE 99 mg/dl (70-220); MAGNESIUM 2.5 mg/dl (1.7-2.5); POTASSIUM 3.3 mmol/L (3.5-5.1); SODIUM 139 mmol/L (135-144); TOTAL PROTEIN 5.6 g/dl (6.1-8.1)
[2018-05-29 07:27] LABS: PHOSPHORUS 1.7 mg/dl (2.5-4.9)
[2018-05-29] MEDS: INSULIN ASPART [NOVOLOG] 3 ML PEN SC ×4 (07:55→21:00)
[2018-05-29] MEDS: SUCRALFATE (100 MG/ML) 10ML CUP PO ×4 (08:28→21:00)
[2018-05-29] MEDS: DOCUSATE SODIUM 100 MG CAP PO ×3 (08:28→21:01)
[2018-05-29] MEDS: POLYETHYLENE GLYCOL 17 GM PACKET PO ×2 (08:29→21:01)
[2018-05-29] MEDS: ATENOLOL 100 MG TAB PO (08:29)
[2018-05-29] MEDS: DILTIAZEM (CD) 120 MG CAP PO (08:29)
[2018-05-29] MEDS: SPIRONOLACTONE 50 MG TAB PO (08:29)
[2018-05-29] MEDS: HARD FAT/PHENYLEPHRINE SUPP PR ×2 (08:30→21:00)
[2018-05-29] MEDS: POTASSIUM CHLORIDE 20 MEQ POWDER FOR ORAL SOLN PO (15:39)
[2018-05-30] MEDS: ACCU-CHEK XX (01:33)
[2018-05-30] MEDS: PANTOPRAZOLE (EC) 40 MG TAB PO ×2 (05:14→18:16)
[2018-05-30] MEDS: KETOROLAC 30 MG INJ IV ×2 (05:15→14:21)
[2018-05-30] MEDS: INSULIN ASPART [NOVOLOG] 3 ML PEN SC ×4 (07:55→20:52)
[2018-05-30] MEDS: SUCRALFATE (100 MG/ML) 10ML CUP PO ×4 (08:05→20:53)
[2018-05-30] MEDS: SPIRONOLACTONE 50 MG TAB PO (08:05)
[2018-05-30] MEDS: DILTIAZEM (CD) 120 MG CAP PO (08:06)
[2018-05-30] MEDS: POLYETHYLENE GLYCOL 17 GM PACKET PO ×2 (08:06→20:53)
[2018-05-30] MEDS: DOCUSATE SODIUM 100 MG CAP PO ×2 (08:06→20:53)
[2018-05-30] MEDS: ATENOLOL 100 MG TAB PO (08:06)
[2018-05-30] MEDS: HARD FAT/PHENYLEPHRINE SUPP PR ×4 (08:07→21:00)
[2018-05-30] MEDS: POTASSIUM CHLORIDE 20 MEQ POWDER FOR ORAL SOLN PO (08:10)
[2018-05-30] MEDS: IBUPROFEN 600 MG TAB PO (18:29)
[2018-05-30] MEDS ORDERED: LIDOCAINE 2% JELLY 5 ML TOP (18:30)
[2018-05-30] MEDS: HYDROCORTISONE 2.5% 30 GM RECT CR PR (21:29)
[2018-05-31] MEDS: ACCU-CHEK XX (02:00)
[2018-05-31 05:25] LABS: ALANINE AMINOTRANSFERASE 27 IU/L (13-69); ALBUMIN 2.6 g/dl (3.3-4.9); ALBUMIN/GLOBULIN RATIO 0.89; ALKALINE PHOSPHATASE 117 IU/L (42-121); ANION GAP 7 (8-16); ASPARTATE AMINO TRANSFERASE 32 IU/L (15-46); BILIRUBIN,INDIRECT 0.9 mg/dl (0-1.1); BILIRUBIN,TOTAL 0.9 mg/dl (0.2-1.3); BLOOD UREA NITROGEN 11 mg/dl (7-20); CALCIUM 8.1 mg/dl (8.4-10.2); CARBON DIOXIDE 26 mmol/L (21-31); CHLORIDE 110 mmol/L (97-110); CREATININE 0.99 mg/dl (0.44-1.00); GLUCOSE 91 mg/dl (70-220); POTASSIUM 4.5 mmol/L (3.5-5.1); SODIUM 138 mmol/L (135-144); TOTAL PROTEIN 5.5 g/dl (6.1-8.1)
[2018-05-31 05:28] LABS: INR 2.37; PROTIME 26.5 Sec (11.9-14.9); PT RATIO 2.1
[2018-05-31] MEDS: PANTOPRAZOLE (EC) 40 MG TAB PO ×2 (06:29→18:00)
[2018-05-31] MEDS: IBUPROFEN 600 MG TAB PO (06:31)
[2018-05-31] MEDS: INSULIN ASPART [NOVOLOG] 3 ML PEN SC ×4 (07:50→20:45)
[2018-05-31] MEDS: SUCRALFATE (100 MG/ML) 10ML CUP PO ×4 (08:47→20:49)
[2018-05-31] MEDS: POTASSIUM CHLORIDE 20 MEQ POWDER FOR ORAL SOLN PO (08:48)
[2018-05-31] MEDS: DOCUSATE SODIUM 100 MG CAP PO ×2 (08:48→20:46)
[2018-05-31] MEDS: POLYETHYLENE GLYCOL 17 GM PACKET PO ×2 (08:48→20:46)
[2018-05-31] MEDS: SPIRONOLACTONE 50 MG TAB PO (08:49)
[2018-05-31] MEDS: DILTIAZEM (CD) 120 MG CAP PO (08:49)
[2018-05-31] MEDS: ATENOLOL 100 MG TAB PO (09:00)
[2018-05-31] MEDS: HARD FAT/PHENYLEPHRINE SUPP PR ×2 (09:00→20:47)
[2018-05-31] MEDS ORDERED: ENOXAPARIN 100 MG/ML SYG SC (11:00)
[2018-05-31] MEDS: HYDROCORTISONE 25 MG SUPP PR ×2 (14:30→20:47)
[2018-05-31] MEDS: ENOXAPARIN 60 MG/0.6 ML SYG SC ×2 (15:38→20:47)
[2018-06-01] MEDS: ACCU-CHEK XX (01:23)
[2018-06-01 05:16] LABS: ADD MAN DIFF? NO
[2018-06-01 05:23] LABS: BASOPHIL # 0.1 10^3/ul (0.0-0.1); BASOPHILS % 0.7 % (0.0-2.0); EOSINOPHILS # 0.4 10^3/ul (0.0-0.5); EOSINOPHILS % 6.6 % (0.0-7.0); HEMOGLOBIN 8.3 g/dl (12.0-16.0); LYMPHOCYTES # 1.7 10^3/ul (0.8-2.9); LYMPHOCYTES % 25.6 % (15.0-51.0); MEAN CORPUSCULAR HEMOGLOBIN 30.9 pg (29.0-33.0); MEAN CORPUSCULAR HGB CONC 30.7 g/dl (32.0-37.0); MEAN CORPUSCULAR VOLUME 100.4 fl (82.0-101.0); MEAN PLATELET VOLUME 9.8 fl (7.4-10.4); MONOCYTE # 0.8 10^3/ul (0.3-0.9); MONOCYTES % 12.6 % (0.0-11.0); NEUTROPHIL # 3.6 10^3/ul (1.6-7.5); NEUTROPHILS % 54.1 % (39.0-77.0); PLATELET COUNT 275 10^3/UL (140-415); RED BLOOD COUNT 2.69 10^6/ul (4.20-5.40); RED CELL DISTRIBUTION WIDTH 17.8 % (11.5-14.5)
[2018-06-01 05:23] LABS: WHITE BLOOD COUNT 6.7 10^3/ul (4.8-10.8)
[2018-06-01 05:38] LABS: INR 1.91; PROTIME 22.3 Sec (11.9-14.9); PT RATIO 1.7
[2018-06-01 05:44] LABS: ANION GAP 10 (8-16); BLOOD UREA NITROGEN 11 mg/dl (7-20); CALCIUM 8.9 mg/dl (8.4-10.2); CARBON DIOXIDE 29 mmol/L (21-31); CHLORIDE 108 mmol/L (97-110); CREATININE 1.14 mg/dl (0.44-1.00); GLUCOSE 107 mg/dl (70-220); MAGNESIUM 2.6 mg/dl (1.7-2.5); POTASSIUM 5.1 mmol/L (3.5-5.1); SODIUM 142 mmol/L (135-144)
[2018-06-01 05:44] LABS: LIPASE 667 U/L (23-300)
[2018-06-01] MEDS: PANTOPRAZOLE (EC) 40 MG TAB PO ×2 (06:13→18:21)
[2018-06-01] MEDS: INSULIN ASPART [NOVOLOG] 3 ML PEN SC ×4 (07:50→21:00)
[2018-06-01] MEDS: SPIRONOLACTONE 50 MG TAB PO (08:54)
[2018-06-01] MEDS: POLYETHYLENE GLYCOL 17 GM PACKET PO ×2 (08:55→21:00)
[2018-06-01] MEDS: SUCRALFATE (100 MG/ML) 10ML CUP PO ×4 (08:55→22:27)
[2018-06-01] MEDS: DOCUSATE SODIUM 100 MG CAP PO ×2 (08:55→21:00)
[2018-06-01] MEDS: POTASSIUM CHLORIDE 20 MEQ POWDER FOR ORAL SOLN PO (08:55)
[2018-06-01] MEDS: DILTIAZEM (CD) 120 MG CAP PO (08:55)
[2018-06-01] MEDS: HYDROCORTISONE 25 MG SUPP PR ×2 (08:55→21:00)
[2018-06-01] MEDS: ATENOLOL 100 MG TAB PO (08:55)
[2018-06-01] MEDS: ENOXAPARIN 60 MG/0.6 ML SYG SC ×2 (09:00→21:07)
[2018-06-01] MEDS: HARD FAT/PHENYLEPHRINE SUPP PR ×2 (09:00→21:00)
[2018-06-01] MEDS: SOD CHLORIDE 0.45% 1,000 ML IV (13:51)
[2018-06-02] MEDS: ACCU-CHEK XX ×2 (01:30→21:39)
[2018-06-02] MEDS: SOD CHLORIDE 0.45% 1,000 ML IV ×2 (02:55→16:48)
[2018-06-02] MEDS: PANTOPRAZOLE (EC) 40 MG TAB PO ×2 (05:04→17:43)
[2018-06-02 05:31] LABS: ADD MAN DIFF? NO
[2018-06-02 05:32] LABS: BASOPHIL # 0.1 10^3/ul (0.0-0.1); BASOPHILS % 1.2 % (0.0-2.0); EOSINOPHILS # 0.4 10^3/ul (0.0-0.5); EOSINOPHILS % 8.8 % (0.0-7.0); HEMATOCRIT 25.2 % (37.0-47.0); HEMOGLOBIN 7.7 g/dl (12.0-16.0); LYMPHOCYTES % 20.4 % (15.0-51.0); MEAN CORPUSCULAR HEMOGLOBIN 30.4 pg (29.0-33.0); MEAN CORPUSCULAR HGB CONC 30.6 g/dl (32.0-37.0); MEAN CORPUSCULAR VOLUME 99.6 fl (82.0-101.0); MEAN PLATELET VOLUME 10.1 fl (7.4-10.4); MONOCYTE # 0.6 10^3/ul (0.3-0.9); MONOCYTES % 11.8 % (0.0-11.0); NEUTROPHIL # 2.9 10^3/ul (1.6-7.5); PLATELET COUNT 223 10^3/UL (140-415); RED BLOOD COUNT 2.53 10^6/ul (4.20-5.40); RED CELL DISTRIBUTION WIDTH 17.6 % (11.5-14.5)
[2018-06-02 05:50] LABS: LIPASE 596 U/L (23-300)
[2018-06-02 05:50] LABS: INR 1.57; PROTIME 19.1 Sec (11.9-14.9); PT RATIO 1.5
[2018-06-02 05:52] LABS: ANION GAP 10 (8-16); BLOOD UREA NITROGEN 9 mg/dl (7-20); CALCIUM 8.7 mg/dl (8.4-10.2); CARBON DIOXIDE 27 mmol/L (21-31); CHLORIDE 106 mmol/L (97-110); CREATININE 1.05 mg/dl (0.44-1.00); GLUCOSE 116 mg/dl (70-220); POTASSIUM 4.6 mmol/L (3.5-5.1); SODIUM 138 mmol/L (135-144)
[2018-06-02] MEDS: INSULIN ASPART [NOVOLOG] 3 ML PEN SC ×4 (07:50→21:00)
[2018-06-02] MEDS: DOCUSATE SODIUM 100 MG CAP PO ×2 (09:00→21:00)
[2018-06-02] MEDS: ENOXAPARIN 60 MG/0.6 ML SYG SC ×2 (09:12→21:41)
[2018-06-02] MEDS: POTASSIUM CHLORIDE 20 MEQ POWDER FOR ORAL SOLN PO (09:17)
[2018-06-02] MEDS: DILTIAZEM (CD) 120 MG CAP PO (09:23)
[2018-06-02] MEDS: SUCRALFATE (100 MG/ML) 10ML CUP PO ×4 (09:24→21:00)
[2018-06-02] MEDS: POLYETHYLENE GLYCOL 17 GM PACKET PO ×2 (09:24→21:00)
[2018-06-02] MEDS: ATENOLOL 100 MG TAB PO (09:24)
[2018-06-02] MEDS: SPIRONOLACTONE 50 MG TAB PO (09:24)
[2018-06-02] MEDS: HYDROCORTISONE 25 MG SUPP PR ×2 (09:32→21:00)
[2018-06-02] MEDS: HARD FAT/PHENYLEPHRINE SUPP PR ×3 (11:45→21:00)
[2018-06-02] MEDS: morphine 2 MG INJ IV (12:22)
[2018-06-02] MEDS: ONDANSETRON 4 MG INJ IV (12:22)
[2018-06-03 05:10] LABS: WHITE BLOOD COUNT 5.4 10^3/ul (4.8-10.8)
[2018-06-03 05:10] LABS: ADD MAN DIFF? NO; BASOPHIL # 0.1 10^3/ul (0.0-0.1); BASOPHILS % 1.3 % (0.0-2.0); EOSINOPHILS # 0.4 10^3/ul (0.0-0.5); EOSINOPHILS % 7.6 % (0.0-7.0); HEMATOCRIT 26.2 % (37.0-47.0); LYMPHOCYTES # 1.3 10^3/ul (0.8-2.9); LYMPHOCYTES % 24.3 % (15.0-51.0); MEAN CORPUSCULAR HEMOGLOBIN 30.3 pg (29.0-33.0); MEAN CORPUSCULAR HGB CONC 30.5 g/dl (32.0-37.0); MEAN CORPUSCULAR VOLUME 99.2 fl (82.0-101.0); MEAN PLATELET VOLUME 9.8 fl (7.4-10.4); MONOCYTE # 0.6 10^3/ul (0.3-0.9); MONOCYTES % 11.5 % (0.0-11.0); NEUTROPHILS % 54.7 % (39.0-77.0); PLATELET COUNT 233 10^3/UL (140-415); RED BLOOD COUNT 2.64 10^6/ul (4.20-5.40); RED CELL DISTRIBUTION WIDTH 17.6 % (11.5-14.5)
[2018-06-03 05:35] LABS: LIPASE 274 U/L (23-300)
[2018-06-03 05:42] LABS: ANION GAP 8 (8-16); BLOOD UREA NITROGEN 6 mg/dl (7-20); CALCIUM 8.5 mg/dl (8.4-10.2); CARBON DIOXIDE 24 mmol/L (21-31); CHLORIDE 112 mmol/L (97-110); CREATININE 0.97 mg/dl (0.44-1.00); GLUCOSE 89 mg/dl (70-220); POTASSIUM 4.6 mmol/L (3.5-5.1); SODIUM 139 mmol/L (135-144)
[2018-06-03] MEDS: PANTOPRAZOLE (EC) 40 MG TAB PO ×2 (06:00→18:15)
[2018-06-03] MEDS: SOD CHLORIDE 0.45% 1,000 ML IV (06:31)
[2018-06-03] MEDS: INSULIN ASPART [NOVOLOG] 3 ML PEN SC ×4 (08:30→21:00)
[2018-06-03] MEDS: HARD FAT/PHENYLEPHRINE SUPP PR ×2 (09:00→21:00)
[2018-06-03] MEDS: HYDROCORTISONE 25 MG SUPP PR ×2 (09:00→21:00)
[2018-06-03] MEDS: SUCRALFATE (100 MG/ML) 10ML CUP PO ×4 (10:27→21:00)
[2018-06-03] MEDS: POTASSIUM CHLORIDE 20 MEQ POWDER FOR ORAL SOLN PO (10:27)
[2018-06-03] MEDS: DILTIAZEM (CD) 120 MG CAP PO (10:27)
[2018-06-03] MEDS: ATENOLOL 100 MG TAB PO (10:28)
[2018-06-03] MEDS: DOCUSATE SODIUM 100 MG CAP PO ×2 (10:28→21:00)
[2018-06-03] MEDS: SPIRONOLACTONE 50 MG TAB PO (10:28)
[2018-06-03] MEDS: HYDROCORTISONE 2.5% 30 GM RECT CR PR (10:29)
[2018-06-03] MEDS: ENOXAPARIN 60 MG/0.6 ML SYG SC ×2 (10:32→21:08)
[2018-06-03] MEDS: POLYETHYLENE GLYCOL 17 GM PACKET PO ×2 (10:33→21:00)
[2018-06-03] MEDS: IBUPROFEN 600 MG TAB PO (13:52)
[2018-06-03] MEDS: FUROSEMIDE 20 MG TAB PO (18:15)
[2018-06-03] MEDS: WARFARIN 2 MG TAB PO (18:15)
[2018-06-03] MEDS: ONDANSETRON 4 MG INJ IV (20:56)
[2018-06-03] MEDS: ACETAMINOPHEN 325 MG TAB PO (21:08)
[2018-06-03] MEDS: ACCU-CHEK XX (21:23)
[2018-06-03] MEDS: morphine 2 MG INJ IV (22:00)
[2018-06-04 05:34] LABS: ADD MAN DIFF? NO
[2018-06-04 05:43] LABS: BASOPHIL # 0.1 10^3/ul (0.0-0.1); EOSINOPHILS # 0.5 10^3/ul (0.0-0.5); HEMATOCRIT 28.3 % (37.0-47.0); HEMOGLOBIN 8.5 g/dl (12.0-16.0); LYMPHOCYTES # 1.5 10^3/ul (0.8-2.9); LYMPHOCYTES % 23.8 % (15.0-51.0); MEAN CORPUSCULAR HEMOGLOBIN 29.6 pg (29.0-33.0); MEAN CORPUSCULAR VOLUME 98.6 fl (82.0-101.0); MEAN PLATELET VOLUME 10.3 fl (7.4-10.4); MONOCYTE # 0.8 10^3/ul (0.3-0.9); MONOCYTES % 12.6 % (0.0-11.0); NEUTROPHIL # 3.4 10^3/ul (1.6-7.5); PLATELET COUNT 242 10^3/UL (140-415); RED BLOOD COUNT 2.87 10^6/ul (4.20-5.40); RED CELL DISTRIBUTION WIDTH 17.5 % (11.5-14.5)
[2018-06-04 05:43] LABS: WHITE BLOOD COUNT 6.3 10^3/ul (4.8-10.8)
[2018-06-04 06:00] LABS: ANION GAP 12 (8-16); BLOOD UREA NITROGEN 8 mg/dl (7-20); CALCIUM 9.1 mg/dl (8.4-10.2); CARBON DIOXIDE 26 mmol/L (21-31); CHLORIDE 106 mmol/L (97-110); CREATININE 1.21 mg/dl (0.44-1.00); GLUCOSE 97 mg/dl (70-220); INR 1.38; POTASSIUM 4.5 mmol/L (3.5-5.1); PROTIME 17.2 Sec (11.9-14.9); PT RATIO 1.3; SODIUM 139 mmol/L (135-144)
[2018-06-04] MEDS: PANTOPRAZOLE (EC) 40 MG TAB PO ×2 (06:00→18:12)
[2018-06-04] MEDS: INSULIN ASPART [NOVOLOG] 3 ML PEN SC ×4 (07:50→21:00)
[2018-06-04] MEDS: SUCRALFATE (100 MG/ML) 10ML CUP PO ×4 (09:35→21:25)
[2018-06-04] MEDS: POTASSIUM CHLORIDE 20 MEQ POWDER FOR ORAL SOLN PO (09:36)
[2018-06-04] MEDS: FUROSEMIDE 20 MG TAB PO (09:38)
[2018-06-04] MEDS: SPIRONOLACTONE 50 MG TAB PO (09:38)
[2018-06-04] MEDS: DOCUSATE SODIUM 100 MG CAP PO ×2 (09:38→21:25)
[2018-06-04] MEDS: DILTIAZEM (CD) 120 MG CAP PO (09:39)
[2018-06-04] MEDS: HARD FAT/PHENYLEPHRINE SUPP PR ×2 (09:39→21:25)
[2018-06-04] MEDS: ATENOLOL 100 MG TAB PO (09:39)
[2018-06-04] MEDS: HYDROCORTISONE 25 MG SUPP PR ×2 (09:39→21:25)
[2018-06-04] MEDS: POLYETHYLENE GLYCOL 17 GM PACKET PO ×3 (09:44→21:25)
[2018-06-04] MEDS: ENOXAPARIN 60 MG/0.6 ML SYG SC (09:47)
[2018-06-04] MEDS: ONDANSETRON 4 MG INJ IV ×2 (09:53→21:34)
[2018-06-04] MEDS: morphine 2 MG INJ IV ×2 (09:54→21:35)
[2018-06-04] MEDS: WARFARIN 2 MG TAB PO (18:12)
[2018-06-05] MEDS: ACCU-CHEK XX (02:00)
[2018-06-05 04:53] LABS: ADD MAN DIFF? NO
[2018-06-05 05:17] LABS: BASOPHIL # 0.1 10^3/ul (0.0-0.1); BASOPHILS % 0.7 % (0.0-2.0); EOSINOPHILS # 0.1 10^3/ul (0.0-0.5); EOSINOPHILS % 0.7 % (0.0-7.0); HEMATOCRIT 26.3 % (37.0-47.0); HEMOGLOBIN 8.3 g/dl (12.0-16.0); MEAN CORPUSCULAR HEMOGLOBIN 30.5 pg (29.0-33.0); MEAN CORPUSCULAR HGB CONC 31.6 g/dl (32.0-37.0); MEAN CORPUSCULAR VOLUME 96.7 fl (82.0-101.0); MONOCYTE # 0.5 10^3/ul (0.3-0.9); MONOCYTES % 7.6 % (0.0-11.0); NEUTROPHIL # 5.5 10^3/ul (1.6-7.5); NEUTROPHILS % 76.6 % (39.0-77.0); PLATELET COUNT 224 10^3/UL (140-415); RED BLOOD COUNT 2.72 10^6/ul (4.20-5.40); RED CELL DISTRIBUTION WIDTH 17.8 % (11.5-14.5)
[2018-06-05 05:17] LABS: WHITE BLOOD COUNT 7.1 10^3/ul (4.8-10.8)
[2018-06-05] MEDS: PANTOPRAZOLE (EC) 40 MG TAB PO ×2 (05:35→17:52)
[2018-06-05 05:40] LABS: ANION GAP 8 (8-16); BLOOD UREA NITROGEN 9 mg/dl (7-20); CALCIUM 9.4 mg/dl (8.4-10.2); CARBON DIOXIDE 31 mmol/L (21-31); CHLORIDE 102 mmol/L (97-110); CREATININE 1.55 mg/dl (0.44-1.00); GLUCOSE 127 mg/dl (70-220); INR 1.56; PHOSPHORUS 3.7 mg/dl (2.5-4.9); POTASSIUM 5.2 mmol/L (3.5-5.1); PT RATIO 1.5; SODIUM 136 mmol/L (135-144)
[2018-06-05] MEDS: INSULIN ASPART [NOVOLOG] 3 ML PEN SC ×4 (08:40→21:00)
[2018-06-05] MEDS: HYDROCORTISONE 25 MG SUPP PR ×2 (09:00→20:55)
[2018-06-05] MEDS: POTASSIUM CHLORIDE 20 MEQ POWDER FOR ORAL SOLN PO (09:00)
[2018-06-05] MEDS: HARD FAT/PHENYLEPHRINE SUPP PR ×2 (09:00→20:56)
[2018-06-05] MEDS: POLYETHYLENE GLYCOL 17 GM PACKET PO ×2 (09:40→20:55)
[2018-06-05] MEDS: SUCRALFATE (100 MG/ML) 10ML CUP PO ×4 (09:41→20:57)
[2018-06-05] MEDS: ATENOLOL 100 MG TAB PO (09:43)
[2018-06-05] MEDS: DILTIAZEM (CD) 120 MG CAP PO (09:43)
[2018-06-05] MEDS: DOCUSATE SODIUM 100 MG CAP PO ×2 (09:43→20:55)
[2018-06-05] MEDS: ENOXAPARIN 60 MG/0.6 ML SYG SC (09:45)
[2018-06-05] MEDS: SOD CHLORIDE 0.9% 1,000 ML IV (09:47)
[2018-06-05] MEDS: morphine 2 MG INJ IV (17:53)
[2018-06-05] MEDS: ONDANSETRON 4 MG INJ IV (17:53)
[2018-06-05] MEDS: WARFARIN 2 MG TAB PO (17:53)
[2018-06-05] MEDS: HYDROCORTISONE 2.5% 30 GM RECT CR PR (21:56)
[2018-06-06] MEDS: ACCU-CHEK XX (02:00)
[2018-06-06 05:03] LABS: ADD MAN DIFF? NO; BASOPHIL # 0.1 10^3/ul (0.0-0.1); BASOPHILS % 1.3 % (0.0-2.0); EOSINOPHILS # 0.6 10^3/ul (0.0-0.5); EOSINOPHILS % 8.6 % (0.0-7.0); HEMATOCRIT 26.8 % (37.0-47.0); HEMOGLOBIN 8.3 g/dl (12.0-16.0); LYMPHOCYTES # 1.3 10^3/ul (0.8-2.9); LYMPHOCYTES % 19.7 % (15.0-51.0); MEAN CORPUSCULAR VOLUME 96.8 fl (82.0-101.0); MEAN PLATELET VOLUME 9.9 fl (7.4-10.4); MONOCYTE # 0.9 10^3/ul (0.3-0.9); MONOCYTES % 13.2 % (0.0-11.0); NEUTROPHIL # 3.8 10^3/ul (1.6-7.5); NEUTROPHILS % 56.9 % (39.0-77.0); PLATELET COUNT 200 10^3/UL (140-415); RED BLOOD COUNT 2.77 10^6/ul (4.20-5.40); RED CELL DISTRIBUTION WIDTH 17.7 % (11.5-14.5)
[2018-06-06 05:03] LABS: WHITE BLOOD COUNT 6.8 10^3/ul (4.8-10.8)
[2018-06-06 05:23] LABS: INR 1.93; PROTIME 22.5 Sec (11.9-14.9); PT RATIO 1.8
[2018-06-06 05:39] LABS: ANION GAP 9 (8-16); BLOOD UREA NITROGEN 12 mg/dl (7-20); CALCIUM 8.8 mg/dl (8.4-10.2); CARBON DIOXIDE 29 mmol/L (21-31); CHLORIDE 104 mmol/L (97-110); CREATININE 1.13 mg/dl (0.44-1.00); GLUCOSE 100 mg/dl (70-220); MAGNESIUM 1.9 mg/dl (1.7-2.5); PHOSPHORUS 3.4 mg/dl (2.5-4.9); POTASSIUM 4.1 mmol/L (3.5-5.1); SODIUM 138 mmol/L (135-144)
[2018-06-06] MEDS: PANTOPRAZOLE (EC) 40 MG TAB PO (06:02)
[2018-06-06] MEDS: morphine 2 MG INJ IV ×2 (06:39→10:56)
[2018-06-06] MEDS: INSULIN ASPART [NOVOLOG] 3 ML PEN SC ×2 (07:50→11:40)
[2018-06-06] MEDS: DOCUSATE SODIUM 100 MG CAP PO (08:53)
[2018-06-06] MEDS: POLYETHYLENE GLYCOL 17 GM PACKET PO (08:54)
[2018-06-06] MEDS: DILTIAZEM (CD) 120 MG CAP PO (08:54)
[2018-06-06] MEDS: HARD FAT/PHENYLEPHRINE SUPP PR (08:55)
[2018-06-06] MEDS: ATENOLOL 100 MG TAB PO (08:55)
[2018-06-06] MEDS: HYDROCORTISONE 25 MG SUPP PR (08:55)
[2018-06-06] MEDS: SUCRALFATE (100 MG/ML) 10ML CUP PO ×2 (08:55→13:00)
[2018-06-06] MEDS: ENOXAPARIN 60 MG/0.6 ML SYG SC ×2 (09:00→10:45)
[2018-06-06 09:32] LABS: ADD UMIC YES; UR ASCORBIC ACID NEGATIVE (NEGATIVE); UR BILIRUBIN (Dip) NEGATIVE (NEGATIVE); UR BLOOD (Dip) 1+ mg/dL (NEGATIVE); UR CLARITY SLIGHTLY CLOUDY (CLEAR); UR COLOR YELLOW (YELLOW); UR GLUCOSE (Dip) NEGATIVE (NEGATIVE); UR KETONES (Dip) NEGATIVE (NEGATIVE); UR LEUKOCYTE ESTERASE (Dip) NEGATIVE Leu/ul (NEGATIVE); UR NITRITE (Dip) NEGATIVE (NEGATIVE); UR RBC 1 /HPF (0-5); UR SPECIFIC GRAVITY (Dip) 1.012 (1.003-1.030); UR SQUAMOUS EPITHELIAL CELL FEW /HPF (FEW); UR TOTAL PROTEIN (Dip) NEGATIVE (NEGATIVE); UR UROBILINOGEN (Dip) 2+ mg/dL (NEGATIVE); UR WBC 5 /HPF (0-5)
[2018-06-06 09:44] LABS: SODIUM,URINE RANDOM 178 mmol/L (30-90)
[2018-06-06 09:44] LABS: CREATININE,URINE RANDOM 79.91 mg/dl (20-320)
[2018-06-06] MEDS: ONDANSETRON 4 MG INJ IV (10:55)
[2018-06-06] MEDS: LIDOCAINE 5% PATCH TD (13:38)
[2018-06-07 12:56] LABS: CREATININE, RANDOM URINE 81 mg/dL (20-275); MICROALBUMIN 0.3 mg/dL; MICROALBUMIN/CREATININE RATIO 4 (<30)
== END 2018-06-06 15:50 | DRG 438 ==
LOC: TEL 05-24 00:51 → E/R 21:21 → TEL 05-24 07:26 → MS1 05-30 15:08
DX: K85.90 Acute pancreatitis without necrosis or infection, unspecified (principal); K72.00 Acute and subacute hepatic failure without coma; S52.91XA Unspecified fracture of right forearm, initial encounter for closed fracture; S22.31XA Fracture of one rib, right side, initial encounter for closed fracture; N39.0 Urinary tract infection, site not specified; D68.9 Coagulation defect, unspecified; N17.9 Acute kidney failure, unspecified; I10 Essential (primary) hypertension; E11.9 Type 2 diabetes mellitus without complications; Z90.49 Acquired absence of other specified parts of digestive tract; Z90.710 Acquired absence of both cervix and uterus; K59.00 Constipation, unspecified; Z95.0 Presence of cardiac pacemaker; Z95.2 Presence of prosthetic heart valve; K74.60 Unspecified cirrhosis of liver; I48.2 Chronic atrial fibrillation; E88.81 Metabolic syndrome and other insulin resistance; I25.10 Atherosclerotic heart disease of native coronary artery without angina pectoris; D64.9 Anemia, unspecified; Z87.891 Personal history of nicotine dependence; I51.7 Cardiomegaly; K21.9 Gastro-esophageal reflux disease without esophagitis; E87.5 Hyperkalemia; E83.9 Disorder of mineral metabolism, unspecified; K72.10 Chronic hepatic failure without coma
CPT/HCPCS: 36415; 71100; 74176; 74177; 76700; 80048; 80053; 80061; 81001; 81003; 82043; 82787; 82962; 83036; 83690; 83735; 84100; 84155; 84300; 84443; 85025; 85610; 85730; 87081; 87086; 87338; 93005; 93970; 96374; 96375; 97110; 97116; 97162; 97530; 99285-25

== ENCOUNTER 2018-06-16 04:28 | Inpatient (IN) | payer MEDICARE, OTHER ==
[2018-06-16 05:30] LABS: ADD MAN DIFF? NO
[2018-06-16 05:36] LABS: WHITE BLOOD COUNT 9.5 10^3/ul (4.8-10.8)
[2018-06-16 05:36] LABS: BASOPHIL # 0.1 10^3/ul (0.0-0.1); BASOPHILS % 0.5 % (0.0-2.0); EOSINOPHILS # 0.1 10^3/ul (0.0-0.5); EOSINOPHILS % 0.9 % (0.0-7.0); HEMATOCRIT 26.4 % (37.0-47.0); LYMPHOCYTES # 0.9 10^3/ul (0.8-2.9); LYMPHOCYTES % 9.8 % (15.0-51.0); MEAN CORPUSCULAR HGB CONC 30.3 g/dl (32.0-37.0); MEAN CORPUSCULAR VOLUME 95.7 fl (82.0-101.0); MEAN PLATELET VOLUME 9.9 fl (7.4-10.4); MONOCYTE # 0.8 10^3/ul (0.3-0.9); MONOCYTES % 8.9 % (0.0-11.0); NEUTROPHIL # 7.6 10^3/ul (1.6-7.5); NEUTROPHILS % 79.6 % (39.0-77.0); PLATELET COUNT 274 10^3/UL (140-415); RED BLOOD COUNT 2.76 10^6/ul (4.20-5.40); RED CELL DISTRIBUTION WIDTH 16.5 % (11.5-14.5)
[2018-06-16] MEDS: ONDANSETRON 4 MG INJ IV ×2 (05:44→08:31)
[2018-06-16] MEDS: SOD CHLORIDE 0.9% 1,000 ML IV ×2 (05:44→06:54)
[2018-06-16] MEDS: KETOROLAC 15 MG INJ IV (05:45)
[2018-06-16 05:59] LABS: ALANINE AMINOTRANSFERASE 29 IU/L (13-69); ALBUMIN 3.5 g/dl (3.3-4.9); ALBUMIN/GLOBULIN RATIO 1.02; ALKALINE PHOSPHATASE 158 IU/L (42-121); ANION GAP 14 (5-13); ASPARTATE AMINO TRANSFERASE 36 IU/L (15-46); BILIRUBIN,INDIRECT 0.8 mg/dl (0-1.1); BILIRUBIN,TOTAL 0.8 mg/dl (0.2-1.3); BLOOD UREA NITROGEN 14 mg/dl (7-20); CALCIUM 8.6 mg/dl (8.4-10.2); CARBON DIOXIDE 24 mmol/L (21-31); CHLORIDE 98 mmol/L (97-110); CREATININE 0.87 mg/dl (0.44-1.00); GLUCOSE 143 mg/dl (70-220); POTASSIUM 4.1 mmol/L (3.5-5.1); SODIUM 136 mmol/L (135-144); TOTAL PROTEIN 6.9 g/dl (6.1-8.1)
[2018-06-16 06:29] LABS: INR 4.64; PROTIME 45.4 Sec (11.9-14.9); PT RATIO 3.5
[2018-06-16] MEDS ORDERED: NACL 0.9% 3 ML SYG IV (06:30)
[2018-06-16] MEDS: PHYTONADIONE 10 MG/ML INJ SC (06:53)
[2018-06-16 07:25] LABS: LIPASE 342 U/L (23-300)
[2018-06-16 08:04] LABS: ADD UMIC NO; UR ASCORBIC ACID 40 mg/dL (NEGATIVE); UR BILIRUBIN (Dip) NEGATIVE (NEGATIVE); UR BLOOD (Dip) NEGATIVE (NEGATIVE); UR CLARITY SLIGHTLY CLOUDY (CLEAR); UR COLOR YELLOW (YELLOW); UR GLUCOSE (Dip) NEGATIVE (NEGATIVE); UR KETONES (Dip) NEGATIVE (NEGATIVE); UR LEUKOCYTE ESTERASE (Dip) NEGATIVE Leu/ul (NEGATIVE); UR NITRITE (Dip) NEGATIVE (NEGATIVE); UR NONSQUAMOUS EPITHELIAL CELL 2 /HPF (NONE SEEN); UR RBC 2 /HPF (0-5); UR SPECIFIC GRAVITY (Dip) 1.024 (1.003-1.030); UR SQUAMOUS EPITHELIAL CELL FEW /HPF (FEW); UR TOTAL PROTEIN (Dip) NEGATIVE (NEGATIVE); UR UROBILINOGEN (Dip) NEGATIVE (NEGATIVE); UR WBC 4 /HPF (0-5)
[2018-06-16] MEDS: FAMOTIDINE 20 MG INJ IV (08:31)
[2018-06-16] MEDS: morphine 2 MG INJ IV (08:32)
[2018-06-16 11:54] LABS: IMMEDIATE SPIN CROSSMATCH 1 1
[2018-06-16] MEDS: ATENOLOL 100 MG TAB PO (13:01)
[2018-06-16] MEDS: DILTIAZEM (CD) 120 MG CAP PO (13:01)
[2018-06-16 15:07] LABS: IMMEDIATE SPIN CROSSMATCH 1
[2018-06-16] MEDS: PANTOPRAZOLE (EC) 40 MG TAB PO (17:36)
[2018-06-16 20:20] LABS: ADD MAN DIFF? NO; BASOPHILS % 0.3 % (0.0-2.0); EOSINOPHILS % 0.3 % (0.0-7.0); HEMATOCRIT 26.4 % (37.0-47.0); HEMOGLOBIN 8.2 g/dl (12.0-16.0); LYMPHOCYTES % 10.4 % (15.0-51.0); MEAN CORPUSCULAR HEMOGLOBIN 29.7 pg (29.0-33.0); MEAN CORPUSCULAR HGB CONC 31.1 g/dl (32.0-37.0); MEAN CORPUSCULAR VOLUME 95.7 fl (82.0-101.0); MEAN PLATELET VOLUME 9.7 fl (7.4-10.4); MONOCYTE # 0.8 10^3/ul (0.3-0.9); MONOCYTES % 8.3 % (0.0-11.0); NEUTROPHIL # 7.3 10^3/ul (1.6-7.5); PLATELET COUNT 222 10^3/UL (140-415); RED BLOOD COUNT 2.76 10^6/ul (4.20-5.40); RED CELL DISTRIBUTION WIDTH 15.6 % (11.5-14.5)
[2018-06-16 20:20] LABS: WHITE BLOOD COUNT 9.2 10^3/ul (4.8-10.8)
[2018-06-16 20:43] LABS: INR 2.94; PROTIME 31.5 Sec (11.9-14.9); PT RATIO 2.5
[2018-06-16 20:44] LABS: PARTIAL THROMBOPLASTIN TIME 62.9 Sec (23.0-35.0)
[2018-06-17] MEDS: ONDANSETRON 4 MG INJ IV ×2 (03:33→21:00)
[2018-06-17] MEDS: morphine 2 MG INJ IV ×2 (03:33→21:00)
[2018-06-17] MEDS: PANTOPRAZOLE (EC) 40 MG TAB PO (05:31)
[2018-06-17 05:49] LABS: ADD MAN DIFF? NO
[2018-06-17 06:00] LABS: BASOPHILS % 0.4 % (0.0-2.0); EOSINOPHILS # 0.1 10^3/ul (0.0-0.5); HEMATOCRIT 26.3 % (37.0-47.0); HEMOGLOBIN 8.2 g/dl (12.0-16.0); LYMPHOCYTES # 1.1 10^3/ul (0.8-2.9); LYMPHOCYTES % 11.3 % (15.0-51.0); MEAN CORPUSCULAR HEMOGLOBIN 29.7 pg (29.0-33.0); MEAN CORPUSCULAR HGB CONC 31.2 g/dl (32.0-37.0); MEAN CORPUSCULAR VOLUME 95.3 fl (82.0-101.0); MEAN PLATELET VOLUME 9.9 fl (7.4-10.4); MONOCYTE # 0.8 10^3/ul (0.3-0.9); MONOCYTES % 8.6 % (0.0-11.0); NEUTROPHIL # 7.2 10^3/ul (1.6-7.5); NEUTROPHILS % 78.1 % (39.0-77.0); NUCLEATED RED BLOOD CELLS% 0.2 /100WBC (0.0-0.0); PLATELET COUNT 221 10^3/UL (140-415); RED BLOOD COUNT 2.76 10^6/ul (4.20-5.40); RED CELL DISTRIBUTION WIDTH 15.8 % (11.5-14.5)
[2018-06-17 06:00] LABS: WHITE BLOOD COUNT 9.3 10^3/ul (4.8-10.8)
[2018-06-17 06:14] LABS: INR 2.37; PROTIME 26.5 Sec (11.9-14.9); PT RATIO 2.1
[2018-06-17 06:15] LABS: PARTIAL THROMBOPLASTIN TIME 59.2 Sec (23.0-35.0)
[2018-06-17 06:16] LABS: MAGNESIUM 2.5 mg/dl (1.7-2.5)
[2018-06-17 06:26] LABS: PHOSPHORUS 1.9 mg/dl (2.5-4.9)
[2018-06-17 06:26] LABS: ALANINE AMINOTRANSFERASE 28 IU/L (13-69); ALBUMIN 3.1 g/dl (3.3-4.9); ALBUMIN/GLOBULIN RATIO 0.96; ALKALINE PHOSPHATASE 138 IU/L (42-121); AMYLASE 61 U/L (11-123); ANION GAP 9 (5-13); ASPARTATE AMINO TRANSFERASE 45 IU/L (15-46); BILIRUBIN,INDIRECT 1.7 mg/dl (0-1.1); BILIRUBIN,TOTAL 1.7 mg/dl (0.2-1.3); BLOOD UREA NITROGEN 15 mg/dl (7-20); CALCIUM 7.8 mg/dl (8.4-10.2); CARBON DIOXIDE 23 mmol/L (21-31); CHLORIDE 104 mmol/L (97-110); CREATININE 0.79 mg/dl (0.44-1.00); GLUCOSE 112 mg/dl (70-220); LIPASE 121 U/L (23-300); POTASSIUM 4.1 mmol/L (3.5-5.1); SODIUM 136 mmol/L (135-144); TOTAL PROTEIN 6.3 g/dl (6.1-8.1)
[2018-06-17] MEDS: DOCUSATE SODIUM 100 MG CAP PO (10:28)
[2018-06-17] MEDS: ATENOLOL 100 MG TAB PO (10:29)
[2018-06-17] MEDS: DILTIAZEM (CD) 120 MG CAP PO (10:30)
[2018-06-18] MEDS: PANTOPRAZOLE (EC) 40 MG TAB PO (05:02)
[2018-06-18] MEDS: HYDROCODONE/APAP (10/325) TAB PO (05:05)
[2018-06-18 06:38] LABS: ADD MAN DIFF? NO
[2018-06-18 06:40] LABS: WHITE BLOOD COUNT 9.6 10^3/ul (4.8-10.8)
[2018-06-18 06:40] LABS: BASOPHILS % 0.4 % (0.0-2.0); EOSINOPHILS # 0.3 10^3/ul (0.0-0.5); EOSINOPHILS % 2.6 % (0.0-7.0); HEMATOCRIT 27.1 % (37.0-47.0); HEMOGLOBIN 8.3 g/dl (12.0-16.0); LYMPHOCYTES # 0.8 10^3/ul (0.8-2.9); LYMPHOCYTES % 8.3 % (15.0-51.0); MEAN CORPUSCULAR HEMOGLOBIN 30.1 pg (29.0-33.0); MEAN CORPUSCULAR HGB CONC 30.6 g/dl (32.0-37.0); MEAN CORPUSCULAR VOLUME 98.2 fl (82.0-101.0); MEAN PLATELET VOLUME 10.2 fl (7.4-10.4); MONOCYTE # 0.8 10^3/ul (0.3-0.9); MONOCYTES % 8.7 % (0.0-11.0); NEUTROPHIL # 7.7 10^3/ul (1.6-7.5); NEUTROPHILS % 79.6 % (39.0-77.0); PLATELET COUNT 245 10^3/UL (140-415); RED BLOOD COUNT 2.76 10^6/ul (4.20-5.40); RED CELL DISTRIBUTION WIDTH 16.3 % (11.5-14.5)
[2018-06-18 07:12] LABS: INR 1.82; PROTIME 21.5 Sec (11.9-14.9); PT RATIO 1.7
[2018-06-18 07:13] LABS: PARTIAL THROMBOPLASTIN TIME 51.8 Sec (23.0-35.0)
[2018-06-18 07:27] LABS: ALANINE AMINOTRANSFERASE 28 IU/L (13-69); ALBUMIN 3.1 g/dl (3.3-4.9); ALBUMIN/GLOBULIN RATIO 0.96; ALKALINE PHOSPHATASE 182 IU/L (42-121); ANION GAP 9 (5-13); ASPARTATE AMINO TRANSFERASE 81 IU/L (15-46); BILIRUBIN,INDIRECT 1.6 mg/dl (0-1.1); BILIRUBIN,TOTAL 1.6 mg/dl (0.2-1.3); BLOOD UREA NITROGEN 17 mg/dl (7-20); CALCIUM 8.1 mg/dl (8.4-10.2); CARBON DIOXIDE 25 mmol/L (21-31); CHLORIDE 100 mmol/L (97-110); CREATININE 0.82 mg/dl (0.44-1.00); GLUCOSE 122 mg/dl (70-220); MAGNESIUM 2.6 mg/dl (1.7-2.5); PHOSPHORUS 1.6 mg/dl (2.5-4.9); POTASSIUM 4.8 mmol/L (3.5-5.1); SODIUM 134 mmol/L (135-144); TOTAL PROTEIN 6.3 g/dl (6.1-8.1)
[2018-06-18 07:43] LABS: THYROID STIMULATING HORMONE 0.602 MIU/L (0.465-4.680)
[2018-06-18] MEDS: morphine 2 MG INJ IV (09:22)
[2018-06-18] MEDS: ATENOLOL 100 MG TAB PO (09:25)
[2018-06-18] MEDS: DILTIAZEM (CD) 120 MG CAP PO (09:25)
[2018-06-18] MEDS: SENNA/DOCUSATE NA (8.6MG/50MG) TAB PO (09:25)
[2018-06-18] MEDS ORDERED: BISACODYL (EC) 5 MG TAB PO (13:30)
[2018-06-18] MEDS ORDERED: BISACODYL 10 MG SUPP PR (13:30)
[2018-06-18] MEDS: ONDANSETRON 4 MG INJ IV (14:18)
[2018-06-18] MEDS: PROCHLORPERAZINE 10 MG INJ IM (18:10)
[2018-06-18] MEDS: FAMOTIDINE 20 MG INJ IV (18:13)
[2018-06-19 05:52] LABS: ADD MAN DIFF? NO
[2018-06-19 06:01] LABS: BASOPHIL # 0.1 10^3/ul (0.0-0.1); BASOPHILS % 0.6 % (0.0-2.0); EOSINOPHILS # 0.3 10^3/ul (0.0-0.5); EOSINOPHILS % 3.7 % (0.0-7.0); HEMATOCRIT 25.7 % (37.0-47.0); HEMOGLOBIN 7.9 g/dl (12.0-16.0); LYMPHOCYTES # 0.9 10^3/ul (0.8-2.9); LYMPHOCYTES % 10.1 % (15.0-51.0); MEAN CORPUSCULAR HEMOGLOBIN 29.9 pg (29.0-33.0); MEAN CORPUSCULAR HGB CONC 30.7 g/dl (32.0-37.0); MEAN CORPUSCULAR VOLUME 97.3 fl (82.0-101.0); MONOCYTE # 0.8 10^3/ul (0.3-0.9); MONOCYTES % 8.8 % (0.0-11.0); NEUTROPHIL # 6.9 10^3/ul (1.6-7.5); NEUTROPHILS % 76.1 % (39.0-77.0); PLATELET COUNT 277 10^3/UL (140-415); RED BLOOD COUNT 2.64 10^6/ul (4.20-5.40); RED CELL DISTRIBUTION WIDTH 16.8 % (11.5-14.5)
[2018-06-19 06:01] LABS: WHITE BLOOD COUNT 9.1 10^3/ul (4.8-10.8)
[2018-06-19 06:26] LABS: ALANINE AMINOTRANSFERASE 24 IU/L (13-69); ALBUMIN 3.1 g/dl (3.3-4.9); ALBUMIN/GLOBULIN RATIO 0.93; ALKALINE PHOSPHATASE 176 IU/L (42-121); ANION GAP 10 (5-13); ASPARTATE AMINO TRANSFERASE 42 IU/L (15-46); BILIRUBIN,INDIRECT 1.5 mg/dl (0-1.1); BILIRUBIN,TOTAL 1.5 mg/dl (0.2-1.3); BLOOD UREA NITROGEN 24 mg/dl (7-20); CALCIUM 8.2 mg/dl (8.4-10.2); CARBON DIOXIDE 23 mmol/L (21-31); CHLORIDE 101 mmol/L (97-110); GLUCOSE 110 mg/dl (70-220); PHOSPHORUS 2.1 mg/dl (2.5-4.9); POTASSIUM 5.2 mmol/L (3.5-5.1); SODIUM 134 mmol/L (135-144); TOTAL PROTEIN 6.4 g/dl (6.1-8.1)
[2018-06-19 06:40] LABS: LACTIC ACID 1.3 mmol/L (0.5-2.0); LIPASE 100 U/L (23-300)
[2018-06-19] MEDS: FAMOTIDINE 20 MG INJ IV (08:08)
[2018-06-19] MEDS: ATENOLOL 100 MG TAB PO (08:09)
[2018-06-19] MEDS: DILTIAZEM (CD) 120 MG CAP PO (08:09)
[2018-06-19] MEDS: SENNA/DOCUSATE NA (8.6MG/50MG) TAB PO (08:09)
[2018-06-19] MEDS: HYDROCODONE/APAP (10/325) TAB PO (13:12)
[2018-06-19] MEDS: ONDANSETRON 4 MG INJ IV (13:12)
[2018-06-19] MEDS ORDERED: ACETAMINOPHEN (10 MG/ML) IV SYG IV* (13:30)
[2018-06-19] MEDS ORDERED: ACETAMINOPHEN 1000MG/100ML IV 100 ML IVPB (14:00)
[2018-06-20] MEDS: ONDANSETRON 4 MG INJ IV ×3 (01:08→22:09)
[2018-06-20] MEDS: HYDROmorphONE 1 MG/ML SYG IV ×2 (01:08→22:10)
[2018-06-20] MEDS: LORAZEPAM 2 MG INJ IV (02:43)
[2018-06-20] MEDS: METOCLOPRAMIDE 10 MG INJ IV (02:43)
[2018-06-20 06:17] LABS: ADD MAN DIFF? NO
[2018-06-20 06:28] LABS: ABNORMAL IP MESSAGE 1; BASOPHILS % 0.2 % (0.0-2.0); EOSINOPHILS # 0.1 10^3/ul (0.0-0.5); EOSINOPHILS % 0.9 % (0.0-7.0); HEMATOCRIT 25.5 % (37.0-47.0); HEMOGLOBIN 7.6 g/dl (12.0-16.0); LYMPHOCYTES # 0.5 10^3/ul (0.8-2.9); LYMPHOCYTES % 6.1 % (15.0-51.0); MEAN CORPUSCULAR HEMOGLOBIN 29.6 pg (29.0-33.0); MEAN CORPUSCULAR HGB CONC 29.8 g/dl (32.0-37.0); MEAN CORPUSCULAR VOLUME 99.2 fl (82.0-101.0); MONOCYTE # 1.1 10^3/ul (0.3-0.9); MONOCYTES % 12.6 % (0.0-11.0); NEUTROPHILS % 79.6 % (39.0-77.0); PLATELET COUNT 285 10^3/UL (140-415); RED BLOOD COUNT 2.57 10^6/ul (4.20-5.40)
[2018-06-20 06:28] LABS: WHITE BLOOD COUNT 8.8 10^3/ul (4.8-10.8)
[2018-06-20 06:38] LABS: POSITIVE DIFF @See below
[2018-06-20 06:45] LABS: ALANINE AMINOTRANSFERASE 23 IU/L (13-69); ALBUMIN 3.6 g/dl (3.3-4.9); ALBUMIN/GLOBULIN RATIO 1.12; ALKALINE PHOSPHATASE 163 IU/L (42-121); ANION GAP 8 (5-13); ASPARTATE AMINO TRANSFERASE 38 IU/L (15-46); BILIRUBIN,INDIRECT 1.5 mg/dl (0-1.1); BILIRUBIN,TOTAL 1.7 mg/dl (0.2-1.3); BLOOD UREA NITROGEN 28 mg/dl (7-20); CALCIUM 8.2 mg/dl (8.4-10.2); CARBON DIOXIDE 24 mmol/L (21-31); CHLORIDE 101 mmol/L (97-110); GLUCOSE 107 mg/dl (70-220); POTASSIUM 5.4 mmol/L (3.5-5.1); SODIUM 133 mmol/L (135-144); TOTAL PROTEIN 6.8 g/dl (6.1-8.1)
[2018-06-20 06:47] LABS: INR 1.25; PROTIME 15.9 Sec (11.9-14.9); PT RATIO 1.2
[2018-06-20 06:48] LABS: PARTIAL THROMBOPLASTIN TIME 34.8 Sec (23.0-35.0)
[2018-06-20] MEDS: ATENOLOL 100 MG TAB PO (08:05)
[2018-06-20] MEDS: DILTIAZEM (CD) 120 MG CAP PO (08:05)
[2018-06-20] MEDS: FAMOTIDINE 20 MG INJ IV (08:06)
[2018-06-20] MEDS: SENNA/DOCUSATE NA (8.6MG/50MG) TAB PO (08:06)
[2018-06-20] MEDS: BARIUM SULF 2% 450 ML BTL (BERRY SMOOTHIE) PO (17:34)
[2018-06-21 06:31] LABS: ADD MAN DIFF? NO
[2018-06-21 06:39] LABS: WHITE BLOOD COUNT 7.4 10^3/ul (4.8-10.8)
[2018-06-21 06:39] LABS: BASOPHILS % 0.3 % (0.0-2.0); EOSINOPHILS # 0.5 10^3/ul (0.0-0.5); EOSINOPHILS % 6.7 % (0.0-7.0); HEMOGLOBIN 7.5 g/dl (12.0-16.0); LYMPHOCYTES # 0.6 10^3/ul (0.8-2.9); LYMPHOCYTES % 8.5 % (15.0-51.0); MEAN CORPUSCULAR VOLUME 96.5 fl (82.0-101.0); MEAN PLATELET VOLUME 9.6 fl (7.4-10.4); MONOCYTES % 12.8 % (0.0-11.0); NEUTROPHIL # 5.3 10^3/ul (1.6-7.5); NEUTROPHILS % 71.2 % (39.0-77.0); PLATELET COUNT 284 10^3/UL (140-415); RED BLOOD COUNT 2.59 10^6/ul (4.20-5.40); RED CELL DISTRIBUTION WIDTH 16.8 % (11.5-14.5)
[2018-06-21 07:12] LABS: ALANINE AMINOTRANSFERASE 26 IU/L (13-69); ALBUMIN 3.5 g/dl (3.3-4.9); ALKALINE PHOSPHATASE 166 IU/L (42-121); ANION GAP 7 (5-13); ASPARTATE AMINO TRANSFERASE 43 IU/L (15-46); BILIRUBIN,INDIRECT 1.5 mg/dl (0-1.1); BILIRUBIN,TOTAL 1.6 mg/dl (0.2-1.3); BLOOD UREA NITROGEN 22 mg/dl (7-20); CALCIUM 8.4 mg/dl (8.4-10.2); CARBON DIOXIDE 26 mmol/L (21-31); CHLORIDE 99 mmol/L (97-110); CREATININE 0.75 mg/dl (0.44-1.00); GLUCOSE 110 mg/dl (70-220); POTASSIUM 5.1 mmol/L (3.5-5.1); SODIUM 132 mmol/L (135-144)
[2018-06-21] MEDS: BISACODYL (EC) 5 MG TAB PO (08:52)
[2018-06-21] MEDS: SENNA/DOCUSATE NA (8.6MG/50MG) TAB PO (08:52)
[2018-06-21] MEDS: ATENOLOL 100 MG TAB PO (08:52)
[2018-06-21] MEDS: DILTIAZEM (CD) 120 MG CAP PO (08:53)
[2018-06-21] MEDS: FAMOTIDINE 20 MG INJ IV (08:53)
[2018-06-21] MEDS: FUROSEMIDE 20 MG TAB PO (11:01)
[2018-06-21] MEDS: ENOXAPARIN 60 MG/0.6 ML SYG SC ×2 (11:43→21:46)
[2018-06-21] MEDS: FAMOTIDINE 20 MG TAB PO (21:38)
[2018-06-21] MEDS: ONDANSETRON 4 MG INJ IV (21:38)
[2018-06-21] MEDS: HYDROmorphONE 4 MG TAB PO (21:38)
[2018-06-22] MEDS: DILTIAZEM (CD) 120 MG CAP PO (08:53)
[2018-06-22] MEDS: SENNA/DOCUSATE NA (8.6MG/50MG) TAB PO (08:53)
[2018-06-22] MEDS: FUROSEMIDE 20 MG TAB PO (08:53)
[2018-06-22] MEDS: ATENOLOL 100 MG TAB PO (08:54)
[2018-06-22] MEDS: ENOXAPARIN 60 MG/0.6 ML SYG SC ×2 (08:56→20:47)
[2018-06-22] MEDS: HYDROmorphONE 4 MG TAB PO (13:27)
[2018-06-22] MEDS: FAMOTIDINE 20 MG TAB PO (20:38)
[2018-06-22] MEDS: ONDANSETRON 4 MG INJ IV (20:38)
[2018-06-22] MEDS: ACETAMINOPHEN 650MG/20.3ML CUP PO (20:38)
[2018-06-22] MEDS: LACTULOSE 30ML CUP PO (20:38)
[2018-06-23] MEDS: DILTIAZEM (CD) 120 MG CAP PO (08:11)
[2018-06-23] MEDS: SENNA/DOCUSATE NA (8.6MG/50MG) TAB PO (08:11)
[2018-06-23] MEDS: FUROSEMIDE 20 MG TAB PO (08:11)
[2018-06-23] MEDS: LACTULOSE 30ML CUP PO ×2 (08:11→21:00)
[2018-06-23] MEDS: ATENOLOL 100 MG TAB PO (08:11)
[2018-06-23] MEDS: ENOXAPARIN 60 MG/0.6 ML SYG SC ×2 (08:13→21:09)
[2018-06-23] MEDS: SOD CHLORIDE 0.9% 250 ML IV* (14:44)
[2018-06-23] MEDS: DILTIAZEM 25 MG INJ IV ×2 (16:32→18:46)
[2018-06-23 17:56] LABS: AHG CROSSMATCH 1 1
[2018-06-23] MEDS: FAMOTIDINE 20 MG TAB PO (21:09)
[2018-06-23] MEDS: ACETAMINOPHEN 650MG/20.3ML CUP PO (21:43)
[2018-06-24 07:25] LABS: ADD MAN DIFF? NO
[2018-06-24 07:30] LABS: WHITE BLOOD COUNT 5.3 10^3/ul (4.8-10.8)
[2018-06-24 07:30] LABS: BASOPHIL # 0.1 10^3/ul (0.0-0.1); BASOPHILS % 0.9 % (0.0-2.0); EOSINOPHILS # 0.6 10^3/ul (0.0-0.5); EOSINOPHILS % 10.5 % (0.0-7.0); HEMATOCRIT 28.5 % (37.0-47.0); HEMOGLOBIN 8.8 g/dl (12.0-16.0); LYMPHOCYTES # 0.6 10^3/ul (0.8-2.9); LYMPHOCYTES % 11.4 % (15.0-51.0); MEAN CORPUSCULAR HEMOGLOBIN 27.8 pg (29.0-33.0); MEAN CORPUSCULAR HGB CONC 30.9 g/dl (32.0-37.0); MEAN CORPUSCULAR VOLUME 90.2 fl (82.0-101.0); MEAN PLATELET VOLUME 9.4 fl (7.4-10.4); MONOCYTE # 0.7 10^3/ul (0.3-0.9); MONOCYTES % 13.3 % (0.0-11.0); NEUTROPHIL # 3.4 10^3/ul (1.6-7.5); NEUTROPHILS % 63.5 % (39.0-77.0); PLATELET COUNT 279 10^3/UL (140-415); RED BLOOD COUNT 3.16 10^6/ul (4.20-5.40); RED CELL DISTRIBUTION WIDTH 21.2 % (11.5-14.5)
[2018-06-24 07:53] LABS: ALANINE AMINOTRANSFERASE 24 IU/L (13-69); ALBUMIN 3.1 g/dl (3.3-4.9); ALKALINE PHOSPHATASE 159 IU/L (42-121); ANION GAP 8 (5-13); ASPARTATE AMINO TRANSFERASE 34 IU/L (15-46); BILIRUBIN,INDIRECT 1.9 mg/dl (0-1.1); BILIRUBIN,TOTAL 1.9 mg/dl (0.2-1.3); BLOOD UREA NITROGEN 10 mg/dl (7-20); CALCIUM 8.4 mg/dl (8.4-10.2); CARBON DIOXIDE 29 mmol/L (21-31); CHLORIDE 98 mmol/L (97-110); CREATININE 0.55 mg/dl (0.44-1.00); GLUCOSE 94 mg/dl (70-220); PHOSPHORUS 3.1 mg/dl (2.5-4.9); POTASSIUM 3.6 mmol/L (3.5-5.1); SODIUM 135 mmol/L (135-144); TOTAL PROTEIN 6.2 g/dl (6.1-8.1)
[2018-06-24] MEDS: FUROSEMIDE 20 MG TAB PO (08:59)
[2018-06-24] MEDS: DILTIAZEM (CD) 120 MG CAP PO ×2 (08:59→20:30)
[2018-06-24] MEDS: SENNA/DOCUSATE NA (8.6MG/50MG) TAB PO (08:59)
[2018-06-24] MEDS: ENOXAPARIN 60 MG/0.6 ML SYG SC ×2 (09:01→20:44)
[2018-06-24] MEDS: BISACODYL (EC) 5 MG TAB PO (09:16)
[2018-06-24] MEDS: HYDROmorphONE 4 MG TAB PO (09:20)
[2018-06-24] MEDS: ATENOLOL 100 MG TAB PO (09:26)
[2018-06-24] MEDS: DILTIAZEM 25 MG INJ IV (15:16)
[2018-06-24] MEDS ORDERED: morphine 2 MG INJ IV (16:00)
[2018-06-24] MEDS: FAMOTIDINE 20 MG TAB PO (20:30)
[2018-06-24] MEDS: HYDROCODONE/APAP (10/325) TAB PO (20:36)
[2018-06-24] MEDS: ONDANSETRON 4 MG INJ IV (20:36)
[2018-06-25] MEDS: HYDROCODONE/APAP (10/325) TAB PO (07:58)
[2018-06-25] MEDS: FUROSEMIDE 20 MG TAB PO (08:35)
[2018-06-25] MEDS: SENNA/DOCUSATE NA (8.6MG/50MG) TAB PO (08:35)
[2018-06-25] MEDS: ATENOLOL 100 MG TAB PO (08:36)
[2018-06-25] MEDS: ONDANSETRON 4 MG INJ IV ×3 (08:40→17:27)
[2018-06-25] MEDS: ENOXAPARIN 60 MG/0.6 ML SYG SC (08:52)
[2018-06-25 09:14] LABS: ADD MAN DIFF? NO
[2018-06-25 09:18] LABS: BASOPHIL # 0.1 10^3/ul (0.0-0.1); EOSINOPHILS # 0.7 10^3/ul (0.0-0.5); HEMATOCRIT 30.7 % (37.0-47.0); HEMOGLOBIN 9.3 g/dl (12.0-16.0); LYMPHOCYTES # 0.8 10^3/ul (0.8-2.9); MEAN CORPUSCULAR HEMOGLOBIN 27.8 pg (29.0-33.0); MEAN CORPUSCULAR HGB CONC 30.3 g/dl (32.0-37.0); MEAN CORPUSCULAR VOLUME 91.6 fl (82.0-101.0); MEAN PLATELET VOLUME 9.9 fl (7.4-10.4); MONOCYTE # 0.9 10^3/ul (0.3-0.9); MONOCYTES % 14.1 % (0.0-11.0); NEUTROPHIL # 3.7 10^3/ul (1.6-7.5); NEUTROPHILS % 60.4 % (39.0-77.0); PLATELET COUNT 302 10^3/UL (140-415); RED BLOOD COUNT 3.35 10^6/ul (4.20-5.40); RED CELL DISTRIBUTION WIDTH 20.7 % (11.5-14.5)
[2018-06-25 09:18] LABS: WHITE BLOOD COUNT 6.1 10^3/ul (4.8-10.8)
[2018-06-25] MEDS: DILTIAZEM (CD) 120 MG CAP PO (09:31)
[2018-06-25 09:41] LABS: ANION GAP 8 (5-13); BLOOD UREA NITROGEN 11 mg/dl (7-20); CALCIUM 8.7 mg/dl (8.4-10.2); CARBON DIOXIDE 31 mmol/L (21-31); CHLORIDE 98 mmol/L (97-110); CREATININE 0.63 mg/dl (0.44-1.00); GLUCOSE 94 mg/dl (70-220); POTASSIUM 3.7 mmol/L (3.5-5.1); SODIUM 137 mmol/L (135-144)
[2018-06-25 09:46] LABS: PHOSPHORUS 3.4 mg/dl (2.5-4.9)
[2018-06-25 09:46] LABS: MAGNESIUM 1.9 mg/dl (1.7-2.5)
== END 2018-06-25 19:34 | DRG 813 ==
LOC: PP2 06-17 12:30 → E/R 04:28 → TEL 06-17 12:44
PROC: 30233L1 Transfusion of Nonautologous Fresh Plasma into Peripheral Vein, Percutaneous Approach (ICD-10-PCS; principal; 2018-06-16)
PROC: 30233N1 Transfusion of Nonautologous Red Blood Cells into Peripheral Vein, Percutaneous Approach (ICD-10-PCS; 2018-06-16)
DX: D68.32 Hemorrhagic disorder due to extrinsic circulating anticoagulants (principal); D62 Acute posthemorrhagic anemia; Z79.02 Long term (current) use of antithrombotics/antiplatelets; I48.2 Chronic atrial fibrillation; E86.0 Dehydration; I10 Essential (primary) hypertension; E11.9 Type 2 diabetes mellitus without complications; I34.0 Nonrheumatic mitral (valve) insufficiency; T45.515A Adverse effect of anticoagulants, initial encounter; S30.1XXA Contusion of abdominal wall, initial encounter
CPT/HCPCS: 36430; 71045; 74176; 80048; 80053; 81001; 81003; 82150; 82962; 83605; 83690; 83735; 84100; 84443; 85025; 85610; 85730; 86850; 86870; 86900; 86901; 86902; 86920; 87086; 96374; 96375; 97110; 97162; 99285-25